=== PATIENT | female | born 1960 | race Caucasian/White ===

== ENCOUNTER → 2016-06-03 | Outpatient (CLI) | payer OTHER, MEDICAID ==
[~2016-06-03] MED LIST: /ESOM40CA OR; ALBU17IN INH; ARNU1INH INH; ASPI81TA83 OR; BUPIVACAINE HCL 0.25% 30 ML VIAL As Ordered ONE; CLAR10CA3 PO; CRES20TA OR; DOCU10CA PO; DOK100TA PO; GEMF600T PO; ISOVUE-M 300 61% 15ML VIAL (Q9967) As Ordered ONE; LIDOCAINE 1% SDV INJ 30 ML VIAL As Ordered ONE; LIPI80TA PO; LYRI150C OR; MECL-68 PO; PLAV75TA38 PO; PROT1TAB2 PO; RANI1TAB6 PO; SING10TA32 PO; TRIAMCINOLONE ACETONIDE SUSP 40 MG/ML VIAL (J3301) As Ordered ONE; VITA100037 PO; VITATAB73 PO; ZANA4CAP OR; diazePAM 5 MG TAB As Ordered ONE; metoprolol PO; oxyCODONE 5MG TAB As Ordered ONE
--- NOTE | 2016-06-03 10:33 | REP ---
Partial SI joint series: Four views. History: Right-sided SI joint block for pain. 14 seconds of fluoroscopy time is reported. Findings: A sequence of four fluoroscopically obtained intraprocedural spot radiographs of the right SI joint document various needle positions and contrast injections associated with SI joint injection procedure. Signed by Teddy Oglesby MD 06/03/2016 02:32 P
--- NOTE | 2016-06-05 00:27 | ECWPNPC ---
PATIENT NAME: CLARK HA : 1960 GENDER: FEMALE VISIT DATE: 06/03/2016 DISCHARGE DATE: 06/03/16 1038 VISIT LOCKED DATE TIME: PHYSICIAN: IRIS GALDAMEZ RESOURCE: IRIS GALDAMEZ REASON FOR APPOINTMENT 1. RIGHT SIJ HISTORY OF PRESENT ILLNESS HISTORY OF PRESENT ILLNESS: PAIN THE PATIENT DESCRIBES THE PAIN... FALL RISK SCREENING: SCREENING :NO FALLS IN THE PAST YEAR CURRENT MEDICATIONS TAKING VENTOLIN HFA 108 (90 BASE) MCG/ACT AEROSOL SOLUTION 2 PUFFS NEEDED INHALATION EVERY 4 HRS, NOTES: > 1 WEEK TAKING ARNUITY ELLIPTA 100 MCG/ACT AEROSOL POWDER BREATH ACTIVATED 1 PUFF INHALATION ONCE A DAY, NOTES: 06/02/16 0800 TAKING ASPIR-81 81 MG TABLET DELAYED RELEASE 1 TABLET ORALLY ONCE A DAY, NOTES: 06/02/16 08 TAKING ATORVASTATIN CALCIUM 80 MG TABLET 1 TABLET ORALLY ONCE A DAY, NOTES: 06/02/16 0800 TAKING PLAVIX 75 MG TABLET 1 TABLET ORALLY ONCE A DAY, NOTES: 05/27/16 0700 TAKING GEMFIBROZIL 600 MG TABLET 1 TABLET ORALLY TWICE A DAY, NOTES: 06/02/16 2100 TAKING LORATADINE 10 MG TABLET 1 TABLET ORALLY ONCE A DAY, NOTES: 06/02/16 0800 TAKING SINGULAIR 10 MG TABLET 1 TABLET IN THE EVENING ORALLY ONCE A DAY, NOTES: 06/02/16 0800 TAKING PROTONIX 40 MG TABLET DELAYED RELEASE 1 TABLET ORALLY BID, NOTES: 06/02/162099 TAKING RANITIDINE HCL 150 MG CAPSULE 1 CAPSULE ORALLY TWICE A DAY, NOTES: 06/02/162099 TAKING METOPROLOL TARTRATE 25 MG TABLET 1 TABLET ORALLY TWICE A DAY, NOTES: 06/02/16 2100 TAKING ONE DAILY FOR WOMEN TABLET ORALLY DAILY, NOTES: 06/02/16 1800 TAKING MELATONIN 5 MG TABLET 1 TABLET AT BEDTIME NEEDED WITH FOOD ORALLY ONCE A DAY, NOTES: 06/02/162099 NOT-TAKING MECLIZINE HCL 25 MG TABLET 1 TABLET NEEDED ORALLY TID PRN, NOTES: MONTHS AGO NOT-TAKING DOCUSATE SODIUM 100 MG CAPSULE 1 CAPSULE NEEDED ORALLY ONCE A DAY, NOTES: OVER 3 MONTHS AGO NOT-TAKING VALIUM 10 MG TABLET 1 TAB ORALLY 1 TAB 1HR PRE PROC. MDD1, NOTES: 10/25/15 AT 0830 NOT-TAKING VITAMIN D (CHOLECALCIFEROL) 1000 UNIT TABLET 1 TABLET ORALLY ONCE A DAY MEDICATION LIST REVIEWED AND RECONCILED WITH THE PATIENT PAST MEDICAL HISTORY HYPERTENSION ID 2012 WITH STENT PLACEMENT GERD ENVIRONMENTAL ALLERGIES ALLERGIES TAPE: SKIN IRRITATION: SIDE EFFECTS SOCIAL HISTORY GENERAL: TOBACCO USE ARE YOU A:NONSMOKER LEARNING BARRIERS / SPECIAL NEEDS ORIENTED TO PLAN OF CARE: PATIENT, PAIN MANAGEMENT PATIENT, ORIENTED TO PLAN OF CARE: PATIENT, PAIN MANAGEMENT PATIENT. NEW PATIENT PAIN DIARY TODAY'S VISITNOTES FROM 0-10, WHAT LEVEL IS YOUR PAIN TODAY?0 PAIN CLINIC PFS, CLERGY, PUBLIC HEALTH REFERRALS PFS REFERRAL NEEDED?NO CLERGY REFERRAL NEEDED?NO PUBLIC HEALTH REFERRAL NEEDED?NO WAS THE PROVIDER NOTIFIED OF ANY PERTINENT INFO?NO PFS REFERRAL NEEDED?NO CLERGY REFERRAL NEEDED?NO PUBLIC HEALTH REFERRAL NEEDED?NO WAS THE PROVIDER NOTIFIED OF ANY PERTINENT INFO?NO REVIEW OF SYSTEMS CONSTITUTIONAL: ANY CHANGE IN YOUR MEDICAL CONDITION? NO . CHILLS NO . FEVER NO . INFECTION: DO YOU HAVE NEW INFECTIONS? NO . DO YOU HAVE HISTORY OF MRSA? NO . MUSCULOSKELETAL: ANY NEW PATTERNS OF PAIN OR NUMBNESS? YES PT REPORTS NEW PAIN THAT GOES ACROSS SHOULDER BLADES, STARTING ABOUT A WEEK AGO. . GASTROENTEROLOGY: ANY NEW CHANGE IN BOWEL CONTROL? NO . GENITOURINARY: ANY NEW CHANGE IN BLADDER CONTROL? NO . IS THERE A CHANCE YOU COULD BE ? NO . HEMATOLOGY/LYMPH: DO YOU TAKE ANY BLOOD THINNERS? (FOR EXAMPLE- COUMADIN, PLAVIX, AGGRENOX, PLATEL, PRADAXA, OR XARELTO) NO . WHEN WAS YOUR LAST DOSE? DATE: TIME: . NEUROLOGY: HAVE YOU FALLEN IN THE PAST 6 MONTHS? YES PT REPORTS SHE SLIPPED AND FELL ON THE ICE A COUPLE OF WEEKS AGO. DENIES INJURY, NO ED VISIT. . ANY NEW EXTREMITY NUMBNESS OR WEAKNESS? NO . CARDIOLOGY: DO YOU HAVE A PACEMAKER OR DEFIBRILLATOR? NO . RESPIRATORY: HAVE YOU BEEN SICK IN THE PAST WEEK? NO . FEVER NO . FLU LIKE SYMPTOMS? NO . COUGH NO . INTEGUMENTARY: DO YOU HAVE ANY RASHES OR OPEN SORES? NO . ALLERGIC/IMMUNO: ARE YOU ALLERGIC TO SHELLFISH OR IV DYE? NO . ANY NEW ALLERGIES? NO . PSYCHIATRIC: DO YOU HAVE THOUGHTS OF HURTING YOURSELF OR SOMEONE ELSE? NO . ARE YOU ABUSED, NEGLECTED, OR IN AN UNSAFE ENVIRONMENT? NO . ENDOCRINOLOGY: ARE YOU DIABETIC? NO . OTHER: DO YOU NEED ANY PRESCRIPTIONS? NO . IF YES, PLEASE LIST: ____ . ANY NEW PROBLEMS WITH YOUR MEDICATIONS? NO . WHEN DID YOU LAST EAT? ____06/02/162399 . WHEN DID YOU LAST DRINK? ____06/02/162399 . WHAT DID YOU LAST DRINK? ____MILK . NAME OF PERSON DRIVING YOU HOME? ___CAB WITH FRIEND_ . DO YOU HAVE ANY OTHER QUESTIONS OR CONCERNS NO . REVIEWED BY: PROVIDER: . VITAL SIGNS WT 170 LBS, HT 5'3/4", BMI 32.38 INDEX, BP 141/61 MM HG, HR 72 /MIN, RR 16 /MIN, TEMP 96.7 F, OXYGEN SAT % 98, SAFE IN ENV? (Y/N) YES, NA INITIALS TL 0858, REVIEWED BY: ASSESSMENTS SACROILIITIS, NOT ELSEWHERE CLASSIFIED - M46.1 (PRIMARY) PROCEDURES PN SI PRE PROCEDURE DIAGNOSIS SACROILIITIS, SACROILIAC JOINT DYSFUNCTION POST PROCEDURE DIAGNOSIS SACROILIITIS, SACROILIAC JOINT DYSFUNCTION PROCEDURE ., RIGHT SACROILIAC JOINT BLOCK SURGEON DR. IRIS GALDAMEZ AOC DIRECTOR COMBAT OPERATIONS OFFICER NONE ANESTHESIA LOCAL PRE PROCEDURE NOTE PATIENT WITH HISTORY OF CHRONIC LOW BACK PAIN. I EVALUATED THE PATIENT AND REVIEWED THE CHART. I WENT OVER THE RISKS, ALTERNATIVES, AND BENEFITS ASSOCIATED WITH THIS PROCEDURE. THE PATIENT WOULD LIKE TO PROCEED AND GAVE CONSENT TO PERFORM THE PROCEDURE. THE PATIENT DENIES UNEXPLAINABLE WEIGHT LOSS, FEVER, CHILLS, OR NEW CHANGES IN URINARY OR BOWEL CONTROL DESCRIPTION OF PROCEDURE THE PATIENT WAS BROUGHT TO THE PROCEDURE ROOM AND PLACED IN THE PRONE POSITION. THE LUMBOSACRAL AREA WAS CLEANED WITH CHLORAPREP SOLUTION AND DRAPED ASEPTICALLY. THE PROCEDURE WAS DONE UNDER STERILE CONDITIONS. I CHECKED LATERALITY AND THE LEVEL WHERE THE PROCEDURE WAS GOING TO BE PERFORMED WITH THE PATIENT AND THE SUPPORTING STAFF AT THE MOMENT OF THE TIME OUT IN THE PROCEDURE ROOM. UNDER FLUOROSCOPIC GUIDANCE, TARGET POINT WAS SELECTED AT THE LOWER BORDER OF THE RIGHT SACROILIAC JOINT. TARGET POINT WAS SELECTED AFTER MEDIAL ROTATION AND TILT OF THE MAGNIFIER OF THE C-ARM. LIDOCAINE WAS USED TO NUMB THE SKIN AND SUBCUTANEOUS TISSUE BELOW IT. A SPINAL NEEDLE, 22-GAUGE, WAS ADVANCED UNDER FLUOROSCOPIC GUIDANCE AND FOLLOWING PATIENT FEEDBACK UNTIL THE TARGET AREA WAS TOUCHED. THE POSITION OF THE NEEDLE WAS VERIFIED WITH AP AND LATERAL VIEWS. AFTER PROPER POSITION OF THE NEEDLE WAS ACHIEVED, ISOVUE M DYE 30%, 0.25 ML, WAS INJECTED SHOWING SPREAD OF THE DYE. THEN, A SOLUTION OF 20 MG OF KENALOG WAS INJECTED IN RIGHT JOINT WITH 3 ML OF BUPIVACAINE 0.125%. THERE WAS NO EVIDENCE OF BLOOD, PARESTHESIA OR CEREBROSPINAL FLUID DURING THE PROCEDURE. THE PATIENT WAS SENT TO THE RECOVERY ROOM. THE PATIENT WAS MOVING THE EXTREMITIES AND DOING WELL. THERE WAS NO COMPLICATION DURING THE PROCEDURE. FLUOROSCOPY TIME WAS 14 SECONDS POST PROCEDURE NOTE THE PATIENT WILL BE SEEN IN A FOLLOW UP IN THE NEXT FEW WEEKS. INSTRUCTIONS WERE GIVEN, QUESTIONS WERE ANSWERED, AND THE PATIENT EXPRESSED UNDERSTANDING AND AGREED WITH THE PLAN. INSTRUCTIONS WERE GIVEN, QUESTIONS WERE ANSWERED, PATIENT REPORTS UNDERSTANDING AND AGREES WITH THE PLAN. I, REENA SAUNDERS, DOCUMENTED THE ABOVE INFORMATION ACTING A SCRIBE FOR DR. GALDAMEZ. I HAVE REVIEWED THE ABOVE DOCUMENT, WRITTEN BY REENA SAUNDERS SCRIBE AND I VERIFY THAT IT IS ACCURATE. [facility] FLUORO GUIDANCE (PAIN)[id number] PROCEDURE CODES 04179 INJECT SACROILIAC JOINT 6045F RADXPS IN END [id number] PXD FOLLOW UP 3 WEEKS ELECTRONICALLY SIGNED BY IRIS GALDAMEZ MD ON 06/04/2016 AT 08:11 PM EST DISCLAIMER : THIS IS A VISIT SUMMARY EXTRACTED FROM THE [employer] CHART. IT IS NOT A COPY OF THE [employer] PROGRESS NOTE. MTDD
== END ==
LOC: M PAIN 09:10
PROVIDERS: ATTEND Anesthesiology
DX: G89.29 Other chronic pain (principal); M46.1 Sacroiliitis, not elsewhere classified; M53.88 Other specified dorsopathies, sacral and sacrococcygeal region; I10 Essential (primary) hypertension; I25.2 Old myocardial infarction; K21.9 Gastro-esophageal reflux disease without esophagitis; J30.89 Other allergic rhinitis; L23.1 Allergic contact dermatitis due to adhesives; Z79.82 Long term (current) use of aspirin; Z79.899 Other long term (current) drug therapy
CPT/HCPCS: G0260; J3301; Q9967

== ENCOUNTER → 2016-06-19 | Outpatient (CLI) | payer OTHER, MEDICAID ==
[~2016-06-19] MED LIST changes: -BUPIVACAINE HCL 0.25% 30 ML VIAL As Ordered ONE; -ISOVUE-M 300 61% 15ML VIAL (Q9967) As Ordered ONE; -LIDOCAINE 1% SDV INJ 30 ML VIAL As Ordered ONE; -TRIAMCINOLONE ACETONIDE SUSP 40 MG/ML VIAL (J3301) As Ordered ONE; -diazePAM 5 MG TAB As Ordered ONE; -oxyCODONE 5MG TAB As Ordered ONE
--- NOTE | 2016-07-03 02:09 | ECWPNPC ---
PATIENT NAME: CLARK HA : 1960 GENDER: FEMALE VISIT DATE: 06/19/2016 DISCHARGE DATE: 06/19/16 1539 VISIT LOCKED DATE TIME: PHYSICIAN: CRYSTAL POWELL RESOURCE: CRYSTAL POWELL REASON FOR APPOINTMENT 1. POST SIJ HISTORY OF PRESENT ILLNESS HISTORY OF PRESENT ILLNESS: PAIN THE PATIENT DESCRIBES THE PAIN... FALL RISK SCREENING: SCREENING :NO FALLS IN THE PAST YEAR GENERAL: HERE FOR POST PROC. F/U.HAD RSIJ ON 06-03-16.REPORTS NO IMPROVEMENT IN PAIN.TODAY IS CRYING IN PAIN .REPORTING REOCCURENCE OF MID THORACIC PAIN .NOW PAIN IS LOCATED IN BOTH LEGS.DESCRIBES PAIN IS SHARP AND BURNING.RATING PAIN VAS 9/10. CURRENT MEDICATIONS TAKING VENTOLIN HFA 108 (90 BASE) MCG/ACT AEROSOL SOLUTION 2 PUFFS NEEDED INHALATION EVERY 4 HRS, NOTES: > 1 WEEK TAKING ARNUITY ELLIPTA 100 MCG/ACT AEROSOL POWDER BREATH ACTIVATED 1 PUFF INHALATION ONCE A DAY, NOTES: 06/02/16 0800 TAKING ASPIR-81 81 MG TABLET DELAYED RELEASE 1 TABLET ORALLY ONCE A DAY, NOTES: 06/02/16 0800 TAKING ATORVASTATIN CALCIUM 80 MG TABLET 1 TABLET ORALLY ONCE A DAY, NOTES: 06/02/16 0800 TAKING PLAVIX 75 MG TABLET 1 TABLET ORALLY ONCE A DAY, NOTES: 05/27/16 0700 TAKING GEMFIBROZIL 600 MG TABLET 1 TABLET ORALLY TWICE A DAY, NOTES: 06/02/16 2100 TAKING LORATADINE 10 MG TABLET 1 TABLET ORALLY ONCE A DAY, NOTES: 06/02/16 0800 TAKING SINGULAIR 10 MG TABLET 1 TABLET IN THE EVENING ORALLY ONCE A DAY, NOTES: 06/02/16 0800 TAKING PROTONIX 40 MG TABLET DELAYED RELEASE 1 TABLET ORALLY BID, NOTES: 06/02/16 2100 TAKING RANITIDINE HCL 150 MG CAPSULE 1 CAPSULE ORALLY TWICE A DAY, NOTES: 06/02/16 2100 TAKING METOPROLOL TARTRATE 25 MG TABLET 1 TABLET ORALLY TWICE A DAY, NOTES: 06/02/16 2100 TAKING ONE DAILY FOR WOMEN TABLET ORALLY DAILY, NOTES: 06/02/16 1800 TAKING MELATONIN 5 MG TABLET 1 TABLET AT BEDTIME NEEDED WITH FOOD ORALLY ONCE A DAY, NOTES: 06/02/162099 NOT-TAKING MECLIZINE HCL 25 MG TABLET 1 TABLET NEEDED ORALLY TID PRN, NOTES: MONTHS AGO NOT-TAKING DOCUSATE SODIUM 100 MG CAPSULE 1 CAPSULE NEEDED ORALLY ONCE A DAY, NOTES: OVER 3 MONTHS AGO NOT-TAKING VALIUM 10 MG TABLET 1 TAB ORALLY 1 TAB 1HR PRE PROC. MDD1, NOTES: 10/25/15 AT 0830 NOT-TAKING VITAMIN D (CHOLECALCIFEROL) 1000 UNIT TABLET 1 TABLET ORALLY ONCE A DAY MEDICATION LIST REVIEWED AND RECONCILED WITH THE PATIENT PAST MEDICAL HISTORY HYPERTENSION MD 2011 WITH STENT PLACEMENT GERD ENVIRONMENTAL ALLERGIES ALLERGIES TAPE: SKIN IRRITATION: SIDE EFFECTS SOCIAL HISTORY GENERAL: TOBACCO USE ARE YOU A:NONSMOKER LEARNING BARRIERS / SPECIAL NEEDS ORIENTED TO PLAN OF CARE: PATIENT, PAIN MANAGEMENT PATIENT, ORIENTED TO PLAN OF CARE: PATIENT, PAIN MANAGEMENT PATIENT. NEW PATIENT PAIN DIARY TODAY'S VISITNOTES FROM 0-10, WHAT LEVEL IS YOUR PAIN TODAY?0 PAIN CLINIC PFS, CLERGY, PUBLIC HEALTH REFERRALS PFS REFERRAL NEEDED?NO CLERGY REFERRAL NEEDED?NO PUBLIC HEALTH REFERRAL NEEDED?NO WAS THE PROVIDER NOTIFIED OF ANY PERTINENT INFO?NO PFS REFERRAL NEEDED?NO CLERGY REFERRAL NEEDED?NO PUBLIC HEALTH REFERRAL NEEDED?NO WAS THE PROVIDER NOTIFIED OF ANY PERTINENT INFO?NO REVIEW OF SYSTEMS CONSTITUTIONAL: ANY CHANGE IN YOUR MEDICAL CONDITION? NO . CHILLS NO . FEVER NO . INFECTION: DO YOU HAVE NEW INFECTIONS? NO . DO YOU HAVE HISTORY OF MRSA? NO . MUSCULOSKELETAL: ANY NEW PATTERNS OF PAIN OR NUMBNESS? YES, BOTH SIDES BELOW SHOULDERS. PAIN ACROSS WHOLE LOWER BACK, INTO HIPS, AROUND DOWN FRONT OF LEGS , LEFT LEG IS WORSE. DOWN TO FOOT AND HEEL ON LEFT FOOT. . GASTROENTEROLOGY: ANY NEW CHANGE IN BOWEL CONTROL? NO . GENITOURINARY: ANY NEW CHANGE IN BLADDER CONTROL? NO . IS THERE A CHANCE YOU COULD BE ? NO . HEMATOLOGY/LYMPH: DO YOU TAKE ANY BLOOD THINNERS? (FOR EXAMPLE- COUMADIN, PLAVIX, AGGRENOX, PLATEL, PRADAXA, OR XARELTO) YES, PLAVIX . WHEN WAS YOUR LAST DOSE? DATE: TIME: . NEUROLOGY: HAVE YOU FALLEN IN THE PAST 6 MONTHS? YES . ANY NEW EXTREMITY NUMBNESS OR WEAKNESS? NO . CARDIOLOGY: DO YOU HAVE A PACEMAKER OR DEFIBRILLATOR? NO . RESPIRATORY: HAVE YOU BEEN SICK IN THE PAST WEEK? NO . FEVER NO . FLU LIKE SYMPTOMS? NO . COUGH NO . INTEGUMENTARY: DO YOU HAVE ANY RASHES OR OPEN SORES? NO . ALLERGIC/IMMUNO: ARE YOU ALLERGIC TO SHELLFISH OR IV DYE? NO . ANY NEW ALLERGIES? NO . PSYCHIATRIC: DO YOU HAVE THOUGHTS OF HURTING YOURSELF OR SOMEONE ELSE? NO . ARE YOU ABUSED, NEGLECTED, OR IN AN UNSAFE ENVIRONMENT? NO . ENDOCRINOLOGY: ARE YOU DIABETIC? NO . OTHER: DO YOU NEED ANY PRESCRIPTIONS? NO . IF YES, PLEASE LIST: ____ . ANY NEW PROBLEMS WITH YOUR MEDICATIONS? NO . WHEN DID YOU LAST EAT? ____ . WHEN DID YOU LAST DRINK? ____ . WHAT DID YOU LAST DRINK? ____ . NAME OF PERSON DRIVING YOU HOME? ____ . DO YOU HAVE ANY OTHER QUESTIONS OR CONCERNS YES, UPSET AND GETTING DEPRESSED BECAUSE THIS INJECTION HAS NOT HELPED THE PAIN AT ALL THIS TIME. . REVIEWED BY: PROVIDER: CRYSTAL JOINER . VITAL SIGNS WT 170 LBS, HT 5'3/4", BMI 32.38 INDEX, BP 148/73 MM HG, HR 76 /MIN, RR 16 /MIN, TEMP 98.8 F, OXYGEN SAT % 99, NA INITIALS MP, REVIEWED BY: CM. EXAMINATION GENERAL EXAMINATION: LUNGS:LUNG SOUNDS ARE CLEAR. HEART:HEART RATE REGULAR. MUSCULOSKELETAL:*, MUSCLE STRENGTH TESTING 5/5 BILATERAL, PALPATION: TENDER OVER RIGHT SIJ AND PIRIFORMIS, PALPATION: POSITIVE FOR PAIN OVER L/S SPINE. POSITIVE FOR PAIN OVER L/S PARASPINALS. ASSESSMENTS PAIN IN THORACIC SPINE - M54.6 (PRIMARY) MYALGIA - M79.1 TREATMENT PAIN IN THORACIC SPINE START TRAMADOL HCL TABLET, 50 MG, 1 TABLET NEEDED, ORALLY, BID, 30 DAY(S), 60 TABLET, REFILLS 1 START GABAPENTIN CAPSULE, 100 MG, DIRECTED, ORALLY, BID, 30 DAY(S), 60, REFILLS 1 [facility] MRI SPINE,THORACIC WITHOUT [id number] NOTES: LAB WORK-ISRAEL,RHEUMATOID FACTOR,ESR,LUPUS ANTICOAGULANT,TSH. PREVENTIVE MEDICINE PAIN CLINIC TEACHING: MEDICATIONS PRINTED HANDOUTS FOR TRAMADOL AND GABAPENTIN GIVEN/REVIEWED WITH PT.. PROCEDURE CODES FA211 ESTABILISHED PATIENT [facility] CHARGE FOLLOW UP 4 WEEKS ELECTRONICALLY SIGNED BY MARISEL GROSS ON 06/30/2016 AT 07:37 PM EST DISCLAIMER : THIS IS A VISIT SUMMARY EXTRACTED FROM THE [employer] CHART. IT IS NOT A COPY OF THE [employer] PROGRESS NOTE. MTDD
== END ==
LOC: M PAIN 15:00
PROVIDERS: ATTEND Nurse Practitioner Family
DX: M54.6 Pain in thoracic spine (principal); M79.1 Myalgia; I25.2 Old myocardial infarction; Z95.5 Presence of coronary angioplasty implant and graft; Z79.82 Long term (current) use of aspirin; Z79.899 Other long term (current) drug therapy; Z91.09 Other allergy status, other than to drugs and biological substances

== ENCOUNTER → 2016-06-30 | Outpatient (CLI) | payer OTHER ==
[2016-07-02 00:14] LABS: Lyme Disease IgG/IgM Antibodie <0.91 ISR (0.00-0.90); Lyme Disease IgM Ab Quantitati <0.80 index (0.00-0.79)
== END ==
LOC: M LAB 07:54
PROVIDERS: ATTEND Nurse Practitioner Family
DX: M05.9 Rheumatoid arthritis with rheumatoid factor, unspecified (principal); N80.6 Endometriosis in cutaneous scar; N18.6 End stage renal disease; M32.9 Systemic lupus erythematosus, unspecified; Z79.01 Long term (current) use of anticoagulants; Z13.29 Encounter for screening for other suspected endocrine disorder

== ENCOUNTER → 2016-07-17 | Outpatient (CLI) | payer OTHER, MEDICAID ==
--- NOTE | 2016-07-19 00:45 | ECWPNPC ---
PATIENT NAME: CLARK HA : 1960 GENDER: FEMALE VISIT DATE: 07/17/2016 DISCHARGE DATE: 07/17/16 1544 VISIT LOCKED DATE TIME: PHYSICIAN: CRYSTAL POWELL RESOURCE: CRYSTAL POWELL REASON FOR APPOINTMENT 1. FOLLOWUP-LOW BACK HISTORY OF PRESENT ILLNESS HISTORY OF PRESENT ILLNESS: HERE FOR F/U AND MANAGEMENT OF CHRONIC GENERALIZED BODY PAIN.WORSE AREA OF PAIN IS LOW BACK.PAIN IS AGGREVATED BY GOING UP STAIRS.RELIEVED SOMEWHAT BY TRAMADOL 50MG.TAKING GABAPENTIN 100MG BID STARTED AT LAST VISIT WHICH IS HELPING A LITTLE.RATING PAIN VAS 6/10.INFLAMMATORY BLOODWORK ORDERED AT LAST VISIT REVIEWED AND WNL. PAIN THE PATIENT DESCRIBES THE PAIN... FALL RISK SCREENING: SCREENING :NO FALLS IN THE PAST YEAR CURRENT MEDICATIONS TAKING VENTOLIN HFA 108 (90 BASE) MCG/ACT AEROSOL SOLUTION 2 PUFFS NEEDED INHALATION EVERY 4 HRS, NOTES: > 1 WEEK TAKING ARNUITY ELLIPTA 100 MCG/ACT AEROSOL POWDER BREATH ACTIVATED 1 PUFF INHALATION ONCE A DAY, NOTES: 06/02/16 0800 TAKING ASPIR-81 81 MG TABLET DELAYED RELEASE 1 TABLET ORALLY ONCE A DAY, NOTES: 06/02/16 0800 TAKING ATORVASTATIN CALCIUM 80 MG TABLET 1 TABLET ORALLY ONCE A DAY, NOTES: 06/02/16 0800 TAKING PLAVIX 75 MG TABLET 1 TABLET ORALLY ONCE A DAY, NOTES: 05/27/16 0700 TAKING GEMFIBROZIL 600 MG TABLET 1 TABLET ORALLY TWICE A DAY, NOTES: 06/02/16 2100 TAKING LORATADINE 10 MG TABLET 1 TABLET ORALLY ONCE A DAY, NOTES: 06/02/16 0800 TAKING SINGULAIR 10 MG TABLET 1 TABLET IN THE EVENING ORALLY ONCE A DAY, NOTES: 06/02/16 0800 TAKING PROTONIX 40 MG TABLET DELAYED RELEASE 1 TABLET ORALLY BID, NOTES: 06/02/16 2100 TAKING RANITIDINE HCL 150 MG CAPSULE 1 CAPSULE ORALLY TWICE A DAY, NOTES: 06/02/16 2100 TAKING METOPROLOL TARTRATE 25 MG TABLET 1 TABLET ORALLY TWICE A DAY, NOTES: 06/02/16 2100 TAKING ONE DAILY FOR WOMEN TABLET ORALLY DAILY, NOTES: 06/02/16 1800 TAKING MELATONIN 5 MG TABLET 1 TABLET AT BEDTIME NEEDED WITH FOOD ORALLY ONCE A DAY, NOTES: 06/02/16 2100 TAKING TRAMADOL HCL 50 MG TABLET 1 TABLET NEEDED ORALLY BID TAKING GABAPENTIN 100 MG CAPSULE DIRECTED ORALLY BID TAKING ANORO ELLIPTA UMECLIDINIUM 62.5 MCG AND VILANTEROL 25 MCG INHALATION POWDER 1 INHALATION ORAL ONCE DAILY NOT-TAKING MECLIZINE HCL 25 MG TABLET 1 TABLET NEEDED ORALLY TID PRN, NOTES: MONTHS AGO NOT-TAKING DOCUSATE SODIUM 100 MG CAPSULE 1 CAPSULE NEEDED ORALLY ONCE A DAY, NOTES: OVER 3 MONTHS AGO NOT-TAKING VALIUM 10 MG TABLET 1 TAB ORALLY 1 TAB 1HR PRE PROC. MDD1, NOTES: 10/25/15 AT 0830 NOT-TAKING VITAMIN D (CHOLECALCIFEROL) 1000 UNIT TABLET 1 TABLET ORALLY ONCE A DAY MEDICATION LIST REVIEWED AND RECONCILED WITH THE PATIENT PAST MEDICAL HISTORY HYPERTENSION MO 2011 WITH STENT PLACEMENT GERD ENVIRONMENTAL ALLERGIES ALLERGIES TAPE: SKIN IRRITATION: SIDE EFFECTS SOCIAL HISTORY GENERAL: TOBACCO USE ARE YOU A:NONSMOKER LEARNING BARRIERS / SPECIAL NEEDS ORIENTED TO PLAN OF CARE: PATIENT, PAIN MANAGEMENT PATIENT, ORIENTED TO PLAN OF CARE: PATIENT, PAIN MANAGEMENT PATIENT. NEW PATIENT PAIN DIARY TODAY'S VISITNOTES FROM 0-10, WHAT LEVEL IS YOUR PAIN TODAY?0 PAIN CLINIC PFS, CLERGY, PUBLIC HEALTH REFERRALS PFS REFERRAL NEEDED?NO CLERGY REFERRAL NEEDED?NO PUBLIC HEALTH REFERRAL NEEDED?NO WAS THE PROVIDER NOTIFIED OF ANY PERTINENT INFO?NO PFS REFERRAL NEEDED?NO CLERGY REFERRAL NEEDED?NO PUBLIC HEALTH REFERRAL NEEDED?NO WAS THE PROVIDER NOTIFIED OF ANY PERTINENT INFO?NO REVIEW OF SYSTEMS CONSTITUTIONAL: ANY CHANGE IN YOUR MEDICAL CONDITION? NO . CHILLS NO . FEVER NO . INFECTION: DO YOU HAVE NEW INFECTIONS? NO . DO YOU HAVE HISTORY OF MRSA? NO . MUSCULOSKELETAL: ANY NEW PATTERNS OF PAIN OR NUMBNESS? NO . GASTROENTEROLOGY: ANY NEW CHANGE IN BOWEL CONTROL? NO . GENITOURINARY: ANY NEW CHANGE IN BLADDER CONTROL? NO . IS THERE A CHANCE YOU COULD BE ? NO . HEMATOLOGY/LYMPH: DO YOU TAKE ANY BLOOD THINNERS? (FOR EXAMPLE- COUMADIN, PLAVIX, AGGRENOX, PLATEL, PRADAXA, OR XARELTO) YES PLAVIX . WHEN WAS YOUR LAST DOSE? DATE: TIME: . NEUROLOGY: HAVE YOU FALLEN IN THE PAST 6 MONTHS? NO . ANY NEW EXTREMITY NUMBNESS OR WEAKNESS? NO . CARDIOLOGY: DO YOU HAVE A PACEMAKER OR DEFIBRILLATOR? NO . RESPIRATORY: HAVE YOU BEEN SICK IN THE PAST WEEK? NO . FEVER NO . FLU LIKE SYMPTOMS? NO . COUGH NO . INTEGUMENTARY: DO YOU HAVE ANY RASHES OR OPEN SORES? NO . ALLERGIC/IMMUNO: ARE YOU ALLERGIC TO SHELLFISH OR IV DYE? NO . ANY NEW ALLERGIES? NO . PSYCHIATRIC: DO YOU HAVE THOUGHTS OF HURTING YOURSELF OR SOMEONE ELSE? NO . ARE YOU ABUSED, NEGLECTED, OR IN AN UNSAFE ENVIRONMENT? NO . ENDOCRINOLOGY: ARE YOU DIABETIC? NO . OTHER: DO YOU NEED ANY PRESCRIPTIONS? NO . IF YES, PLEASE LIST: ____ . ANY NEW PROBLEMS WITH YOUR MEDICATIONS? NO . WHEN DID YOU LAST EAT? ____ . WHEN DID YOU LAST DRINK? ____ . WHAT DID YOU LAST DRINK? ____ . NAME OF PERSON DRIVING YOU HOME? ____ . DO YOU HAVE ANY OTHER QUESTIONS OR CONCERNS NO . REVIEWED BY: PROVIDER: CRYSTAL JOINER . VITAL SIGNS WT 177 LBS, HT 5'3/4", BMI 33.72 INDEX, BP 126/67 MM HG, HR 57 /MIN, RR 16 /MIN, TEMP 98.7 F, OXYGEN SAT % 98, NA INITIALS TL 1426, REVIEWED BY: MLF. EXAMINATION GENERAL EXAMINATION: LUNGS:LUNG SOUNDS ARE CLEAR. HEART:HEART RATE REGULAR. MUSCULOSKELETAL:*, MUSCLE STRENGTH TESTING 5/5 BILATERAL, PALPATION: TENDER OVER RIGHT SIJ AND PIRIFORMIS, PALPATION: POSITIVE FOR PAIN OVER L/S SPINE. POSITIVE FOR PAIN OVER L/S PARASPINALS. MULTIPLE AREAS OF TENDER SPOTS UPPER AND LOWER TORSO INDICATIVE OF FIBROMYALGIA. ASSESSMENTS PAIN IN THORACIC SPINE - M54.6 (PRIMARY) MYALGIA - M79.1 TREATMENT PAIN IN THORACIC SPINE CONTINUE TRAMADOL HCL TABLET, 50 MG, 1 TABLET NEEDED, ORALLY, BID INCREASE GABAPENTIN CAPSULE, 100 MG, 2, ORALLY, BID, 30 DAY(S), 120, REFILLS 2 JOHNSON SPINE THORACOLUMBAR 2 [id number] NOTES: PATIENT WAS ADVISED TO START A WALKING PROGRAM TO STRENGTHEN LUMBAR PARASPINAL MUSCLES AND IMPROVE MOBILITY. THEY WERE ADVISED THAT THIS WILL IMPROVE WEIGHT LOSS AND ALSO DEPRESSION/FIBROMYALGIA SYMPTOMS. ADVISED TO WALK 10 MINUTES EVERY OTHER DAY ON A FLAT SURFACE. EMPHASIZED THE IMPORTANCE OF DOING THIS CONSISTANTLY AND NOT SPORATICALLY TO AVOID INJURY. STRONG ADVISED NOT TO DO MORE THAN 10 MINUTES EVERY OTHER DSY FOR THE FIRST 4 WEEKS. PROCEDURE CODES FA211 ESTABILISHED PATIENT [facility] CHARGE DISPOSITION & COMMUNICATION FOLLOW UP 2 MONTHS ELECTRONICALLY SIGNED BY MARISEL GROSS ON 07/18/2016 AT 04:08 PM EST DISCLAIMER : THIS IS A VISIT SUMMARY EXTRACTED FROM THE [employer] CHART. IT IS NOT A COPY OF THE [employer] PROGRESS NOTE. DARREL
== END ==
LOC: M PAIN 14:00
PROVIDERS: ATTEND Nurse Practitioner Family
DX: Z09 Encounter for follow-up examination after completed treatment for conditions other than malignant neoplasm (principal); G89.29 Other chronic pain; M54.6 Pain in thoracic spine; M79.1 Myalgia; I10 Essential (primary) hypertension; I25.2 Old myocardial infarction; K21.9 Gastro-esophageal reflux disease without esophagitis; J30.2 Other seasonal allergic rhinitis; L23.1 Allergic contact dermatitis due to adhesives; Z79.01 Long term (current) use of anticoagulants; Z79.82 Long term (current) use of aspirin; Z79.891 Long term (current) use of opiate analgesic; Z79.51 Long term (current) use of inhaled steroids; Z79.899 Other long term (current) drug therapy

== ENCOUNTER → 2016-08-08 | Outpatient (CLI) | payer OTHER ==
--- NOTE | 2016-08-08 15:23 | REP ---
THORACOLUMBAR SPINE, TWO VIEWS: HISTORY: Back pain. COMPARISON: 07/25/2011 and 07/19/2015. There is no acute fracture. The L2-3 through L5-S1 intervertebral discs are decreased in height consistent with disc degeneration. Osteophytes are present on L2-5. There are 4 mm of grade 1 spondylolisthesis of L4 on 5. IMPRESSION: Degenerative change as described above. Signed by Marcel Prieto MD 08/08/2016 03:28 P
== END ==
LOC: M RAD 14:13
PROVIDERS: ATTEND Nurse Practitioner Family
DX: M51.34 Other intervertebral disc degeneration, thoracic region (principal)

== ENCOUNTER → 2016-09-16 | Outpatient (CLI) | payer OTHER, MEDICAID ==
--- NOTE | 2016-10-01 01:35 | ECWPNPC ---
PATIENT NAME: CLARK HA : 1960 GENDER: FEMALE VISIT DATE: 09/16/2016 DISCHARGE DATE: 09/16/16 1608 VISIT LOCKED DATE TIME: PHYSICIAN: CRYSTAL POWELL RESOURCE: CRYSTAL POWELL REASON FOR APPOINTMENT 1. LOW BACK HISTORY OF PRESENT ILLNESS HISTORY OF PRESENT ILLNESS: HERE FOR F/U AND MANAGEMENT OF CHRONIC GENERALIZED BODY PAIN.WORSE AREA OF PAIN IS LOW BACK.PAIN IS AGGREVATED BY GOING UP STAIRS.TAKING GABAPENTIN 100MG TWO TAB BID RATING PAIN VAS 5/10.INFLAMMATORY BLOODWORK WAS REVIEWED AT LAST VISIT AND WAS WNL. STARTED ON CYMBALTA 30MG DAILY BY PRIMARY CARE A FEW WEEKS AGO.DISCUSSED MEDICATION AND TREATMENT OPTIONS. PAIN THE PATIENT DESCRIBES THE PAIN... THE PATIENT DESCRIBES THE PAIN... FALL RISK SCREENING: SCREENING :NO FALLS IN THE PAST YEAR CURRENT MEDICATIONS TAKING VENTOLIN HFA 108 (90 BASE) MCG/ACT AEROSOL SOLUTION 2 PUFFS NEEDED INHALATION EVERY 4 HRS TAKING ARNUITY ELLIPTA 100 MCG/ACT AEROSOL POWDER BREATH ACTIVATED 1 PUFF INHALATION ONCE A DAY TAKING ASPIR-81 81 MG TABLET DELAYED RELEASE 1 TABLET ORALLY ONCE A DAY TAKING ATORVASTATIN CALCIUM 80 MG TABLET 1 TABLET ORALLY ONCE A DAY TAKING PLAVIX 75 MG TABLET 1 TABLET ORALLY ONCE A DAY TAKING GEMFIBROZIL 600 MG TABLET 1 TABLET ORALLY TWICE A DAY TAKING LORATADINE 10 MG TABLET 1 TABLET ORALLY ONCE A DAY TAKING SINGULAIR 10 MG TABLET 1 TABLET IN THE EVENING ORALLY ONCE A DAY TAKING PROTONIX 40 MG TABLET DELAYED RELEASE 1 TABLET ORALLY BID TAKING RANITIDINE HCL 150 MG CAPSULE 1 CAPSULE ORALLY TWICE A DAY TAKING METOPROLOL TARTRATE 25 MG TABLET 1 TABLET ORALLY TWICE A DAY TAKING ONE DAILY FOR WOMEN TABLET ORALLY DAILY TAKING MELATONIN 5 MG TABLET 1 TABLET AT BEDTIME NEEDED WITH FOOD ORALLY ONCE A DAY TAKING ANORO ELLIPTA UMECLIDINIUM 62.5 MCG AND VILANTEROL 25 MCG INHALATION POWDER 1 INHALATION ORAL ONCE DAILY TAKING TRAMADOL HCL 50 MG TABLET 1 TABLET NEEDED ORALLY BID TAKING GABAPENTIN 100 MG CAPSULE 2 TABLETS ORALLY ONCE DAILY TAKING CYMBALTA 30 MG CAPSULE DELAYED RELEASE PARTICLES 1 CAPSULE ORALLY DAILY NOT-TAKING MECLIZINE HCL 25 MG TABLET 1 TABLET NEEDED ORALLY TID PRN, NOTES: MONTHS AGO NOT-TAKING DOCUSATE SODIUM 100 MG CAPSULE 1 CAPSULE NEEDED ORALLY ONCE A DAY, NOTES: OVER 3 MONTHS AGO NOT-TAKING VALIUM 10 MG TABLET 1 TAB ORALLY 1 TAB 1HR PRE PROC. MDD1, NOTES: 10/25/15 AT 0830 NOT-TAKING VITAMIN D (CHOLECALCIFEROL) 1000 UNIT TABLET 1 TABLET ORALLY ONCE A DAY MEDICATION LIST REVIEWED AND RECONCILED WITH THE PATIENT PAST MEDICAL HISTORY HYPERTENSION [place] 2011 WITH STENT PLACEMENT GERD ENVIRONMENTAL ALLERGIES ALLERGIES TAPE: SKIN IRRITATION: SIDE EFFECTS REVIEW OF SYSTEMS CONSTITUTIONAL: ANY CHANGE IN YOUR MEDICAL CONDITION? NO . CHILLS NO . FEVER NO . INFECTION: DO YOU HAVE NEW INFECTIONS? NO . DO YOU HAVE HISTORY OF MRSA? NO . MUSCULOSKELETAL: ANY NEW PATTERNS OF PAIN OR NUMBNESS? NO . GASTROENTEROLOGY: ANY NEW CHANGE IN BOWEL CONTROL? NO . GENITOURINARY: ANY NEW CHANGE IN BLADDER CONTROL? NO . IS THERE A CHANCE YOU COULD BE ? NO . HEMATOLOGY/LYMPH: DO YOU TAKE ANY BLOOD THINNERS? (FOR EXAMPLE- COUMADIN, PLAVIX, AGGRENOX, PLATEL, PRADAXA, OR XARELTO) YES, PLAVIX . WHEN WAS YOUR LAST DOSE? DATE: 09/16/16 TIME: 0700 . NEUROLOGY: HAVE YOU FALLEN IN THE PAST 6 MONTHS? NO . ANY NEW EXTREMITY NUMBNESS OR WEAKNESS? NO . CARDIOLOGY: DO YOU HAVE A PACEMAKER OR DEFIBRILLATOR? NO . RESPIRATORY: HAVE YOU BEEN SICK IN THE PAST WEEK? NO . FEVER NO . FLU LIKE SYMPTOMS? NO . COUGH NO . INTEGUMENTARY: DO YOU HAVE ANY RASHES OR OPEN SORES? NO . ALLERGIC/IMMUNO: ARE YOU ALLERGIC TO SHELLFISH OR IV DYE? NO . ANY NEW ALLERGIES? NO . PSYCHIATRIC: DO YOU HAVE THOUGHTS OF HURTING YOURSELF OR SOMEONE ELSE? NO . ARE YOU ABUSED, NEGLECTED, OR IN AN UNSAFE ENVIRONMENT? NO . ENDOCRINOLOGY: ARE YOU DIABETIC? NO . OTHER: DO YOU NEED ANY PRESCRIPTIONS? NO . IF YES, PLEASE LIST: ____ . ANY NEW PROBLEMS WITH YOUR MEDICATIONS? NO . WHEN DID YOU LAST EAT? ____ . WHEN DID YOU LAST DRINK? ____ . WHAT DID YOU LAST DRINK? ____ . NAME OF PERSON DRIVING YOU HOME? ____ . DO YOU HAVE ANY OTHER QUESTIONS OR CONCERNS NO . REVIEWED BY: PROVIDER: CRYSTAL JOINER . VITAL SIGNS WT 177 LBS, HT 5'3/4", BMI 33.72 INDEX, BP 129/63 MM HG, HR 66 /MIN, RR 16 /MIN, TEMP 97.3 F, OXYGEN SAT % 98%, NA INITIALS AW 1512, REVIEWED BY: FRANCIA. EXAMINATION GENERAL EXAMINATION: LUNGS:LUNG SOUNDS ARE CLEAR. HEART:HEART RATE REGULAR. MUSCULOSKELETAL:*, MUSCLE STRENGTH TESTING 5/5 BILATERAL, PALPATION: TENDER OVER RIGHT SIJ AND PIRIFORMIS, PALPATION: POSITIVE FOR PAIN OVER L/S SPINE. POSITIVE FOR PAIN OVER L/S PARASPINALS. MULTIPLE AREAS OF TENDER SPOTS UPPER AND LOWER TORSO INDICATIVE OF FIBROMYALGIA. ASSESSMENTS PAIN IN THORACIC SPINE - M54.6 (PRIMARY) MYALGIA - M79.1 TREATMENT PAIN IN THORACIC SPINE REFILL TRAMADOL HCL TABLET, 50 MG, 1 TABLET NEEDED, ORALLY, DAILY PRN PAIN MDD1, 30 DAY(S), 30, REFILLS 1 STOP GABAPENTIN CAPSULE, 100 MG, 2 TABLETS, ORALLY, ONCE DAILY REFERRAL TO:PHYSICAL THERAPIST REASON:CHRONIC LOW BACK PAIN-2X WK X 6 WK PROCEDURE CODES FA211 ESTABILISHED PATIENT [facility] CHARGE DISPOSITION & COMMUNICATION FOLLOW UP 2 MONTHS ELECTRONICALLY SIGNED BY MARISEL GROSS ON 09/30/2016 AT 12:59 PM EDT DISCLAIMER : THIS IS A VISIT SUMMARY EXTRACTED FROM THE [facility] CHART. IT IS NOT A COPY OF THE [facility] PROGRESS NOTE. DARREL
== END ==
LOC: M PAIN 15:00
PROVIDERS: ATTEND Nurse Practitioner Family
DX: G89.29 Other chronic pain (principal); M54.6 Pain in thoracic spine; M79.1 Myalgia; I10 Essential (primary) hypertension; K21.9 Gastro-esophageal reflux disease without esophagitis; J30.9 Allergic rhinitis, unspecified; I25.2 Old myocardial infarction; Z79.899 Other long term (current) drug therapy; Z79.82 Long term (current) use of aspirin; Z79.51 Long term (current) use of inhaled steroids; Z79.01 Long term (current) use of anticoagulants; L23.1 Allergic contact dermatitis due to adhesives

== ENCOUNTER 2016-10-12 10:34 | Observation (INO) | payer OTHER, MEDICAID ==
[~2016-10-12] VITALS: Ht 154.9 cm; Wt 81.0 kg
[2016-10-12] MEDS ORDERED: METO25TAB PO (10:49)
[2016-10-12] MEDS ORDERED: CYMB1CAP4 PO (10:49)
[2016-10-12 11:07] LABS: BASO % 0.3 % (0.0-1.0); EOS # 0.3 K/mm3 (0.0-0.50); EOS % 3.8 % (0.0-3.0); LARGE UNSTAINED CELL # 0.2 K/mm3 (0.0-0.4); LARGE UNSTAINED CELL % 2.6 % (0.0-4.0); LYMPH # 2.5 K/mm3 (1.5-4.5); LYMPH % 30.6 % (24.0-44.0); MEAN CORPUSCULAR HGB CONC 33.8 g/dl (32.0-36.5); MEAN CORPUSCULAR VOLUME 91.8 fl (80.0-96.0); MONO # 0.4 K/mm3 (0.0-0.8); MONO % 5.4 % (0.0-5.0); NEUTROPHILS # 4.2 K/mm3 (1.8-7.7); NEUTROPHILS % 57.3 % (36.0-66.0); PLATELET COUNT, AUTOMATED 301 k/mm3 (150-450); RED CELL DISTRIBUTION WIDTH 13.8 % (11.5-14.5); WHITE BLOOD COUNT 7.4 K/mm3 (4.0-10.0)
[2016-10-12 11:23] LABS: ANION GAP 5 MEQ/L (8-16); BLOOD UREA NITROGEN 14 MG/DL (7-18); CALCIUM LEVEL 8.8 MG/DL (8.5-10.1); CARBON DIOXIDE LEVEL 28 MEQ/L (21-32); CHLORIDE LEVEL 110 MEQ/L (98-107); CREATININE FOR GFR 0.96 MG/DL (0.55-1.02); GLOMERULAR FILTRATION RATE > 60.0 (>51); GLUCOSE, FASTING 103 MG/DL (70-105); POTASSIUM SERUM 4.2 MEQ/L (3.5-5.1); SODIUM LEVEL 143 MEQ/L (136-145)
--- NOTE | 2016-10-12 11:45 | REP ---
Clinical: Chest pain . Comparison: 04/23/2014 . Findings: The mediastinum and cardiac silhouette are stable and within normal limits for portable technique. The lung bosch are clear without acute consolidation, effusion, or pneumothorax. Skeletal structures are intact. Impression: Normal portable chest x-ray Signed by Ariel Cervantes MD 10/12/2016 11:37 A
[2016-10-12] MEDS: NITROGLYCERIN 0.4 MG SUBL TABLET SL PRN ×2 (11:51→12:00)
[2016-10-12] MEDS ORDERED: PANTOPRAZOLE 40MG INJ (PROTONIX) (C9113) IV ONE (15:45)
[2016-10-12] MEDS ORDERED: ARNU1INH3 INH (18:42)
[2016-10-12] MEDS ORDERED: TRAM50TA2 PO (18:42)
[2016-10-12] MEDS ORDERED: MELA5TAB21 PO (18:42)
[2016-10-12] MEDS ORDERED: DULO1CAP2 PO (18:42)
[2016-10-12] MEDS ORDERED: ASPI81TA7 PO (18:42)
[2016-10-12] MEDS ORDERED: ANOR1AER INH (18:42)
[2016-10-12] MEDS ORDERED: MAALOX 30 ML SUSP *UDC PO PRN (18:45)
[2016-10-12] MEDS ORDERED: traMADol 50 MG TAB PO PRN (18:45)
[2016-10-12] MEDS ORDERED: ACETAMINOPHEN TAB 650MG DOSE (2X325MG) PO PRN (18:45)
[2016-10-12] MEDS ORDERED: IPRATROPIUM 0.5MG/ALBUTEROL 2.5MG INH SOL UD 3ML (DUONEB)(J7620) NEB PRN (18:45)
[2016-10-12] MEDS: IPRATROPIUM 0.5MG/ALBUTEROL 2.5MG INH SOL UD 3ML (DUONEB)(J7620) NEB SCH (19:52)
[2016-10-12 20:12] VITALS: PULSE 56
[2016-10-12 20:15] VITALS: BP 155/71
[2016-10-12] MEDS: ENOXAPARIN 40 MG/0.4 ML SYRINGE (J1650) SC SCH (20:38)
[2016-10-12] MEDS: FAMOTIDINE 20 MG TAB PO SCH (20:38)
[2016-10-12] MEDS: GEMFIBROZIL 600 MG TAB PO SCH (20:38)
[2016-10-12] MEDS: PANTOPRAZOLE 40MG TAB (PROTONIX) PO SCH (20:38)
[2016-10-12] MEDS: METOPROLOL TART 25 MG TABLET PO SCH (20:48)
--- NOTE | 2016-10-12 20:57 | HPE ---
DATE OF ADMISSION: 10/12/2016 PRIMARY CARE PROVIDER: Mague Brown NP LEAD INSPECTOR: Antolin Hawk MD, covered by Jeff Rizvi MD CHIEF COMPLAINT: Chest pain. HISTORY OF PRESENT ILLNESS: This is a 55-year-old female patient with underlying medical history of coronary artery disease with stents in the past in 2011, hypertension, gastroesophageal reflux disease (GERD), environmental allergies, on aspirin and Plavix. Patient presented stating that earlier this morning around 9:30 when the patient was in the shower with acute onset substernal chest pain that is sharp, radiating to bilateral jaw, with no exacerbating factor, reported initially pain to be 8/10, relieved with nitroglycerin to about 5/10, lasting until around 11 o'clock, but has been pretty persistent, waxing and waning from about 3-4 out of 10 in the emergency room. Patient reported that previous myocardial infarction (TN) the pain was radiating down her arm and not to her jaw. Denies any fevers, chills, cough, shortness of breath. Baseline has chronic bronchitis. Ambulatory at baseline. On aspirin, Plavix, and Lipitor. Denies any palpitations, fevers, chills, sick contacts, recent travel. In the emergency room, cardiac enzymes were repeated three times, have been negative. Patient is active smoker. Case was discussed with Dr. Rizvi and recommended admission for observation and will consider possible transfer tomorrow versus outpatient management. Serial cardiac enzymes overnight. Continue aspirin and Plavix as per Dr. Rizvi. No need for anticoagulation full dose, deep venous thrombosis (DVT) prophylaxis with Lovenox is sufficient. ALLERGIES: Tape and also environmental allergies. PAST MEDICAL HISTORY: 1. Coronary artery disease. 2. Hypertension. 3. Chronic bronchitis. 4. Chronic back pain. 5. GERD. 6. Environmental allergies. PAST SURGICAL HISTORY: 1. Cholecystectomy. 2. Hysterectomy. 3. Knee surgeries. 4. Cardiac stent 2010 and 2011 to left anterior descending (LAD) artery. SOCIAL HISTORY: Patient smokes half a pack per day since she was 11. Counseling provided. Refusing nicotine patch. Drinks beers a couple of times a month, social drinking. No illicit drug use. No cocaine. FAMILY HISTORY: Both parents with coronary artery disease, father with TN in the 60s. REVIEW OF SYSTEMS: Patient reported jaw pain and chest pain. All other review of systems are negative. HOME MEDICATIONS: - Ventolin inhaler as needed - Ellipta inhalation daily - Breo inhalation daily - aspirin 81 mg daily - Lipitor 80 mg by mouth daily - Plavix 75 mg by mouth daily - duloxetine 30 mg by mouth nightly - gemfibrozil 600 mg by mouth twice a day - Claritin 10 mg by mouth daily - melatonin 5 mg by mouth nightly - metoprolol 25 mg by mouth twice a day - Singulair 10 mg by mouth daily - Protonix 40 mg by mouth twice a day - ranitidine 150 mg by mouth twice a day - tramadol 50 mg by mouth daily PHYSICAL EXAMINATION: VITAL SIGNS: Temperature 98.7, pulse 57, respirations 17, blood pressure 128/64, pulse oximetry 99% on room air. GENERAL: Patient alert and oriented times three, in no acute distress. HEENT: Normocephalic, atraumatic. PULMONARY: Bilateral clear to auscultation. No wheezes, rales, or rhonchi. CARDIAC: Regular rate and rhythm. Normal S1, S2. ABDOMEN: Soft, nontender, nondistended. Positive bowel sounds. EXTREMITIES: No edema bilateral lower extremities. NEUROLOGIC: No focal deficits. EKG sinus rhythm at 52, T wave inversion V1. LABORATORY DATA: WBC 7.4, hemoglobin and hematocrit 13.4/39.7, platelets 301. Chemistry: Sodium 143, potassium 4.2, chloride 110, bicarbonate 28, BUN 14, creatinine 0.96. Cardiac enzymes negative times three. Xrays within normal limits. ASSESSMENT AND PLAN: This is a 55-year-old female patient with underlying medical history of coronary artery disease, hypertension, dyslipidemia, smoking, gastroesophageal reflux disease (GERD), environmental allergies, chronic back pain, presented with chest pain. 1. Chest pain, unstable angina. Cardiac enzymes have been negative. Trend cardiac enzymes as per Dr. Rizvi. Serial EKGs. Telemetry monitoring. Aspirin, Plavix, statin, beta blockers. Cardiology, Dr. Rizvi, consulted. Smoking cessation counseling. Refused nicotine patch. Nitroglycerin given. Followup cardiology recommendations. 2. Hypertension. Continue metoprolol. Monitor blood pressure. 3. Dyslipidemia. Continue Lopid and atorvastatin. Continue to monitor. 4. Gastroesophageal reflux disease (GERD). Continue Protonix. Maalox as needed. 5. Chronic bronchitis. Continue Advair, nebulizer treatment. Patient not having any wheeze. 6. Chronic back pain. Continue home medication. 7. Environmental allergies. Supportive care. Continue home medication. 8. Deep venous thrombosis (DVT) prophylaxis. Lovenox subcutaneous. DISPOSITION PLANNING: Pending cardiology followup, serial cardiac enzymes, telemetry monitoring. Smoking cessation counseling provided. Patient refused nicotine patch. Smoking cessation time spent 5 minutes. Patient is aware that smoking is one of the major contributing factors to her coronary artery disease.
[2016-10-12] MEDS ORDERED: DULoxetine 30 MG CAP (CYMBALTA) PO SCH (21:00)
[2016-10-12] MEDS: ADVAIR DISKUS 250/50 INH PWD INH SCH (23:30)
[2016-10-13] VITALS: BP 143/68
[2016-10-13] MEDS: IPRATROPIUM 0.5MG/ALBUTEROL 2.5MG INH SOL UD 3ML (DUONEB)(J7620) NEB SCH ×2 (02:00→07:14)
[2016-10-13 04:00] VITALS: BP 144/69
[2016-10-13 06:07] LABS: MEAN CORPUSCULAR HGB CONC 33.7 g/dl (32.0-36.5); MEAN CORPUSCULAR VOLUME 91.8 fl (80.0-96.0); RED CELL DISTRIBUTION WIDTH 13.8 % (11.5-14.5)
[2016-10-13 06:36] LABS: ANION GAP 5 MEQ/L (8-16); BLOOD UREA NITROGEN 12 MG/DL (7-18); CALCIUM LEVEL 8.8 MG/DL (8.5-10.1); CARBON DIOXIDE LEVEL 29 MEQ/L (21-32); CHLORIDE LEVEL 111 MEQ/L (98-107); CREATININE FOR GFR 0.92 MG/DL (0.55-1.02); GLOMERULAR FILTRATION RATE > 60.0 (>51); GLUCOSE, FASTING 101 MG/DL (70-105); POTASSIUM SERUM 4.4 MEQ/L (3.5-5.1); SODIUM LEVEL 145 MEQ/L (136-145)
[2016-10-13 07:15] VITALS: BP 136/65
[2016-10-13] MEDS: ADVAIR DISKUS 250/50 INH PWD INH SCH (08:06)
[2016-10-13] MEDS ORDERED: SLF 3 ML SYR IV PRN (08:45)
[2016-10-13] MEDS: ENOXAPARIN 40 MG/0.4 ML SYRINGE (J1650) SC SCH (08:50)
[2016-10-13] MEDS: GEMFIBROZIL 600 MG TAB PO SCH (08:51)
[2016-10-13] MEDS: FAMOTIDINE 20 MG TAB PO SCH (08:51)
[2016-10-13 08:52] VITALS: BP 136/65
[2016-10-13] MEDS: METOPROLOL TART 25 MG TABLET PO SCH (08:52)
[2016-10-13] MEDS: PANTOPRAZOLE 40MG TAB (PROTONIX) PO SCH (08:52)
[2016-10-13] MEDS ORDERED: LORATADINE 10 MG TAB PO SCH (09:00)
[2016-10-13] MEDS ORDERED: CLOPIDOGREL 75 MG TAB PO SCH (09:00)
[2016-10-13] MEDS ORDERED: MONTELUKAST 10 MG TAB PO SCH (09:00)
[2016-10-13] MEDS ORDERED: ASPIRIN 81 MG ENTERIC TAB PO SCH (09:00)
[2016-10-13] MEDS ORDERED: ATORVASTATIN 20 MG TAB PO SCH (09:00)
[2016-10-13] MEDS ORDERED: NITR4TASL SL ×2 (11:57→12:00)
--- NOTE | 2016-10-13 13:50 | DS.PDOC ---
Discharge Summary General Date of Admission October 12, 2016 at 18:45 Date of Discharge 10/13/16 Attending Physician: YAJAIRA NAVA MD Specialist/Consultants Involve: DESIRAE RG MD Specialist/Consultants Involve PCP: Mague Brown ADMINISTRATIVE ASSISTANT FRONT DESK Discharge Summary Consults: Dr. Rg Cardiology Discharge diagnosis: Chest pain secondary to Costochondritis, less likely secondary to unstable angina. Secondary diagnosis: Coronary artery disease status post stent placement in the LAD 2011 Hypertension GERD Environmental allergies Chronic bronchitis Tobacco use disorder Chronic back pain Hospital course: Ms. Bartholomew is a 55-year-old female who presented to [facility] ED for chief complaint of chest pain that began on October 12 while patient was in the shower. Was acute, sharp, and radiated to the jaw bilaterally. Occurred spontaneously. Was relieved with nitroglycerin but not fully. Was waxing and waning in nature had come down in intensity while in the ED. Cardiac enzymes were found to be negative 3 in the ED and negative x [address] Rg was consulted. Patient was admitted to the inpatient service for overnight observation and chest pain rule out with cardiac enzymes. As per Dr. Rg's instructions, patient was continued on aspirin and Plavix and was not placed on full anticoagulation but rather Lovenox for DVT prophylaxis. Cardiology was consulted. Patient was placed on telemetry monitoring without any abnormal events reported. Serial EKGs were done done which were unremarkable and showed no acute concerning changes. Patient was also given atorvastatin 80 mg, gemfibrozil 600 mg twice a day, and metoprolol 25 mg twice a day. Her home medications were continued. Patient reported improvement in symptoms and does not complain of chest pain at rest today. States she is feeling fine today and would like to go home. Patient remained hemodynamically stable throughout hospital stay. Progress note on date of discharge: Subjective: Patient seen and examined at bedside.Denies fevers, chills, chest pain, shortness of breath, headache, dizziness, sore throat, cough, abdominal pain, nausea, diaphoresis, vomiting, diarrhea, constipation, hematochezia, hematuria. Admits to reflux. Objective: Vitals: Temperature 99.3, pulse 71, respiratory rate 18, blood pressure 136/65, pulse ox: 98% room air General: Awake, alert, oriented 3. Pleasant and cooperative adult female in no acute distress, lying comfortably in bed. HEENT: Normocephalic atraumatic, grossly normal hearing bilaterally, sclera non- icteric, nose without external lesions. Neck: Supple. Chest: Symmetrical chest rise bilaterally. Positive tenderness to palpation of the mid sternal area and reproducible chest pain laterally across ribs next to sternum. Heart: Regular rate and rhythm, normal S1-S2. No murmurs, rubs, clicks or gallops Lungs: Clear to auscultation bilaterally. No wheezes, rales or rhonchi Abdomen: Active bowel sounds, soft, no masses to palpation, positive generalized tenderness to palpation in the lower abdomen bilaterally. Integumentary: No rashes or lesions noted anywhere. Extremities: No edema in lower extremities bilaterally. Neurological: No focal neurological deficits appreciated bilaterally. Vascular: +2 dorsalis pedis and radial pulses bilaterally. Labs: Please see below. Troponin negative 4. Imaging: Chest x-ray: Unremarkable. EKG: Showed no ischemic changes. Assessment: This is a 55-year-old female who presented with acute chest pain likely secondary to costochondritis, less likely secondary to unstable angina. Disposition: Home. Continue current medication regimen. Nitroglycerin has been prescribed for use for PRN chest pain. Follow-up: With Dr. Hawk in office within 1-2 weeks. Follow up with PCP within 1-2 weeks. Note given for work for one week. Activity: As tolerated. Diet: Low-fat, low-cholesterol. Medications on discharge: Please see below. Time spent on discharge: 35 minutes. Vital Signs/I&Os Vital Signs Date Time Temp Pulse Resp B/P (MAP) Pulse Ox O2 Delivery O2 Flow Rate FiO2 10/13/16 08:52 71 136/65 10/13/16 07:15 99.3 18 98 Room Air I&O- Last 24 Hours up to 6 AM 10/13/16 06:00 Intake Total 75 ml Output Total 1100 ml Balance -1025 ml Laboratory Data Labs 24H Laboratory Tests 2 10/12/16 16:10: Total Creatine Kinase 196H, Creatine Kinase MB 1.0, Creatine Kinase MB Relative Index 0.51, Troponin I < 0.02 10/12/16 21:58: Total Creatine Kinase 128, Creatine Kinase MB 1.0, Creatine Kinase MB Relative Index 0.78, Troponin I < 0.02 10/13/16 06:03: Total Creatine Kinase 112, Creatine Kinase MB 1.0, Creatine Kinase MB Relative Index 0.89, Troponin I < 0.02, Anion Gap 5L, Glomerular Filtration Rate > 60.0, Blood Urea Nitrogen 12, Creatinine 0.92, Sodium Level 145, Potassium Level 4.4, Chloride Level 111H, Carbon Dioxide Level 29, Calcium Level 8.8, Magnesium Level 2.0 CBC/BMP Laboratory Tests 10/13/16 06:03 Red Blood Count 4.13, Mean Corpuscular Volume 91.8, Mean Corpuscular Hemoglobin 31.0, Mean Corpuscular Hemoglobin Concent 33.7, Red Cell Distribution Width 13.8 , Calcium Level 8.8 Discharge Medications Scheduled (Arnuity Ellipta) 200 Mcg/Act Inh, 200 MCG INH DAILY, (Reported) (Anoro Ellipta 62.5-25 Mcg/INH) 1 Aer Aer, 1 AER INH DAILY, (Reported) Aspirin (Aspirin) 81 Mg Tab, 81 MG PO DAILY, (Reported) Atorvastatin Calcium (Lipitor) 80 Mg Tab, 80 MG PO DAILY, (Reported) Clopidogrel Bisulfate (Plavix) 75 Mg Tab, 75 MG PO DAILY, (Reported) Duloxetine Hcl (Duloxetine HCl) 30 Mg Cap, 30 MG PO QHS, (Reported) Gemfibrozil (Gemfibrozil) 600 Mg Tab, 600 MG PO BID, (Reported) Loratadine (Claritin) 10 Mg Cap, 10 MG PO DAILY, (Reported) Melatonin (Melatonin) 5 Mg Tab, 5 MG PO QHS, (Reported) Metoprolol Tartrate (Metoprolol Tartrate) 25 Mg Tab, 25 MG PO BID, (Reported) Montelukast Sodium (Singulair) 10 Mg Tab, 10 MG PO DAILY, (Reported) Pantoprazole Sodium Sesquihydr (Protonix) 40 Mg Tab, 40 MG PO BID, (Reported) Ranitidine HCl (Ranitidine [address]) 150 Mg Tab, 1 TAB PO BID, (Reported) Scheduled PRN Albuterol Sulfate (Ventolin Hfa) 200 Puff/8 Gm Aers, 1-2 PUFFS INH PRN PRN for SOB/WHEEZING, (Reported) Nitroglycerin (Nitrostat) 0.4 Mg Subl, 0.4 MG SL Q5M PRN for CHEST PAIN Please use for chest pain. If pain unrelieved in 5 minutes after 1 dose, please make sure to call 911, visit the ED immediately if this occurs. Tramadol HCl (Tramadol HCl) 50 Mg Tab, 50 MG PO DAILY PRN for PAIN, (Reported) Allergies Coded Allergies: TAPE (Verified Adverse Reaction, Intermediate, SKIN IRRITATION, 03/15/15) TEGADERM GME ATTESTATION GME ATTESTATION My preceptor for this patient encounter was Dr. Yajaira Nava, and was physically present in the building during the encounter and was fully available. As needed, all aspects of the patient interview, examination, medical decision making process, and medical care plan development were reviewed and approved by the preceptor. Preceptor is aware and concurs with the plan as stated in the body of this note and will attest to such by his/her cosignature. LUC CARROLL OGME-1 October 13, 2016 13:46
[2016-10-13] MEDS ORDERED: SLF 3 ML SYR IV SCH (14:00)
--- NOTE | 2016-10-13 14:42 | CR ---
DATE OF CONSULTATION: 10/13/2016 REFERRING PROVIDER: Dr. Monique Muñiz. PRIMARY CARE PROVIDER: Mague Brown NP. PRIMARY COMPLIANCE FIELD TECHNICIAN: Dr. Nohemi Hawk. REASON FOR CONSULT: Chest pain. HISTORY OF PRESENT ILLNESS: 55-year-old woman who is known by the office with a history of premature coronary artery disease, hypertension, hyperlipidemia, gastroesophageal reflux disease (GERD) and smoking, has been stable from cardiac point of view. She does also have a history of non-ST elevation myocardial infarction as well as percutaneous transluminal coronary angioplasty/drug eluting stent. Yesterday, at rest and after shower, she developed sudden onset of substernal chest pain with radiation to the jaw and relieved with nitroglycerine. There was no diaphoresis, dizziness or syncope. It was associated with shortness of breath. Because there are some similarity to the chest pain she had when she had her heart attack, she decided to come to the ER for further evaluation. She was admitted for observation. Cardiology consult was called. When I saw Ms. Janina Bartholomew this morning, she was in supine in bed in no acute distress at rest. She has not been having any chest pain in the hospital and she has been ambulating. Her serum troponin remained normal and there is no significant changes in electrograms. She has been ambulating and she denies any shortness of breath or palpitations, dizziness. She has no focal manifestation. She has no pedal edema, orthopnea or syncope. She is willing to go home and follow as outpatient. She denies any cough or hemoptysis. She has no nausea, vomiting, diarrhea, melena or hematemesis. She has occasional heartburn and she has been on treatment for that. She has no dysuria, polyuria or hematuria. There is no acute sweating or redness of the joints. PAST MEDICAL HISTORY: Positive as mentioned above for coronary artery disease with history of percutaneous transluminal coronary angioplasty/ADELE when she was about 48 and this was followed by a non-ST elevation myocardial infarction. She also has a history of hypertension, hyperlipidemia, smoking, obesity, arthritis, gastroesophageal reflux disease, and chronic bronchitis. There is no history of diabetes mellitus, kidney disease, thyroid disorders, significant valvular heart disease, cardiomyopathy /left ventricular systolic dysfunction, cerebrovascular accident (CVA), atrial fibrillation. PAST SURGICAL HISTORY: Positive for: Cholecystectomy. Hysterectomy. Knee surgeries. Otherwise unremarkable. FAMILY HISTORY: Positive for heart disease, both parents. SOCIAL HISTORY: Patient currently lives alone. She does smoke about half pack per day of cigarettes. She has been trying to quit. She denies any ETOH abuse. She denies any illicit elicit drugs. ADVANCED DIRECTIVES: Patient is a full code. CURRENT MEDICATIONS: - aspirin 81 mg by mouth daily - atorvastatin 80 mg by mouth daily - Plavix 75 mg by mouth daily - Singulair 10 mg by mouth daily - loratadine 10 mg by mouth daily - Cymbalta/duloxetine 30 mg by mouth at bedtime - gemfibrozil 1600 mg by mouth twice a day - metoprolol tartrate 25 mg by mouth twice daily - pantoprazole 40 mg by mouth twice a day - famotidine 20 mg by mouth twice daily - Advair discus 250/50 one puff twice a day - DuoNeb one nebulizer every 6 hours - Mylanta 30 mL by mouth every 6 hours as needed for heartburn - Tylenol 650 mg every 4 hours as needed for mild pain or fever - tramadol 50 mg by mouth daily as needed for mild pain - nitroglycerine sublingual 0.4 mg as needed for chest pain - Lovenox 40 mg subcutaneous daily PHYSICAL EXAMINATION: Patient is alert and oriented, in no acute distress at rest. Last vital signs this morning revealed a blood pressure of 136/65 with pulse of 71, respirations 18 and maximum temperature is 99.3 degrees Fahrenheit with an oxygen saturation of 98% on room air. Examination of the head is normocephalic, atraumatic. Neck is supple, no jugular venous distention (JVD) or carotid bruits. Lungs: Clear bilaterally without any wheezing or crackles. Heart examination revealed normal S1 and S2, without gallops, PMI is not displaced. There is no rub. I could not appreciate any murmurs. Abdomen is unremarkable, soft. Extremities: No pedal edema. Peripheral pulses, dorsalis pedis +2. Neurological examination is negative for focal deficit. LABS: BMP done today shows sodium of 145, potassium 4.4, chloride 111, CO2 29, BUN 12, creatinine 0.92, glomerular filtration rate more than 60. Fasting glucose 101, calcium 8.8. Magnesium is 2.0. Troponin I is less than 0.02. BMP on admission revealed a sodium of 143, potassium 4.2, chloride 110, CO2 28, BUN 14, creatinine 0.96, glomerular filtration rate more than 60, fasting glucose 103, calcium 8.8. CBC done today revealed a WBC of 7.0, hemoglobin 12.8, hematocrit 37.9, platelets 293,000. On admission 10/12/2016, CBC revealed a WBC of 7.4, hemoglobin 13.4, hematocrit 39.7 and platelets 301,000. Chest x-ray was reviewed and revealed no acute disease process. Electrocardiogram done yesterday upon arrival at about 10:58:06 on 10/12/2016 revealed normal sinus rhythm at 58 beats per minute and nonspecific ST-T abnormalities noted in the inferior leads and repeat EKG done the same day at 13:20:05 revealed no significant changes but minimal ST abnormalities noted from leads V1 to V3. At 15:59:22, repeat EKG was similar to the first EKG. The ST-T abnormalities noted in the right pericardial lead was no longer present. Those EKGs were compared to last EKG on 02/21/2014 at 16:04:48, no remarkable changes. Mrs. Janina Bartholomew seems to be stable from a cardiac point of view and she has been asymptomatic since in the hospital and assume troponin remains normal and her EKG did not reveal any significant changes. Her physical examination is benign and blood pressure is normal. I believe she can go home with diagnose of atypical chest pain in the setting of history of coronary artery disease with prior myocardial infarction and prior percutaneous transluminal coronary angioplasty/stent to the LAD, hypertension and hyperlipidemia, smoking. She is well aware to come back to the hospital if she starts having chest pain. Otherwise she will be seen as outpatient. She may continue the same medications. We have discussed smoking cessation, but at this present time, she does not appear to be quite ready to quit. It was a pleasure to participate in the care of Mrs. Janina Bartholomew for her underlying cardiac condition. Case was discussed with hospitalist and patient will go home today for followup as outpatient. She will continue the same medications. She will come back to the hospital if she starts again having chest pain. DARREL
--- NOTE | 2016-10-14 06:26 | ECGEPIP ---
Stationary ECG Study 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
--- NOTE | 2016-10-14 06:30 | ECGEPIP ---
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
--- NOTE | 2016-10-14 07:12 | ECGEPIP ---
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
== END 2016-10-13 13:28 | disposition home or self-care (01) ==
LOC: EDBD 10:34 → M ED 11:30 → M ED INP 18:45 → M PCU 20:12
PROVIDERS: ADMIT Hospitalist; ATTEND Internal Medicine
DX: R07.9 Chest pain, unspecified (principal); I25.10 Atherosclerotic heart disease of native coronary artery without angina pectoris; Z98.61 Coronary angioplasty status; I10 Essential (primary) hypertension; J42 Unspecified chronic bronchitis; F17.210 Nicotine dependence, cigarettes, uncomplicated; Z79.82 Long term (current) use of aspirin; Z79.899 Other long term (current) drug therapy; Z79.02 Long term (current) use of antithrombotics/antiplatelets

== ENCOUNTER 2016-11-03 08:28 | Emergency (ER) | payer OTHER ==
[~2016-11-03] VITALS: Ht 160 cm; Wt 167.0 kg
[~2016-11-03 08:28] MED LIST changes: +ANOR1AER INH; +ARNU1INH3 INH; +ASPI1TAB15 PO; +CYMB1CAP4 PO; +DULO1CAP2 PO; +MELA5TAB21 PO; +METO25TA4 PO; +NITR4TASL SL; +PLAV1TAB2 PO; -PLAV75TA38 PO; +TRAM50TA2 PO; -VITA100037 PO; +VITA100067 PO
[2016-11-03] MEDS ORDERED: CLOP75TA2 (09:06)
[2016-11-03] MEDS ORDERED: NORCO, ANEXSIA 5/325MG TABLET (HYDROcodone/ACETAMINOPHEN) PO ONE (10:45)
[2016-11-03] MEDS ORDERED: NORCOTAB PO (11:50)
--- NOTE | 2016-11-03 11:56 | REP ---
LEFT KNEE SERIES: Five views of the left knee performed. There is no evidence of acute fracture or dislocation. There is mild medial joint space narrowing with subchondral sclerosis. There is spurring of the tibial spines and mild spurring at the medial margin of the joint. There is a moderate joint effusion in the suprapatellar bursa. IMPRESSION: Degenerative changes without fracture or dislocation. Moderate joint effusion. Signed by Dayton Gregg MD 11/03/2016 08:18 P
[2016-11-03 12:00] VITALS: BP 138/79
[2017-03-01] MEDS ORDERED: GEMF600T PO (14:54)
== END 2016-11-03 12:09 | disposition home or self-care (01) ==
LOC: M ED 09:49
DX: S83.92XA Sprain of unspecified site of left knee, initial encounter (principal); M25.462 Effusion, left knee; X58.XXXA Exposure to other specified factors, initial encounter; Y92.89 Other specified places as the place of occurrence of the external cause; Y93.89 Activity, other specified; Y99.0 Civilian activity done for income or pay; I10 Essential (primary) hypertension; I25.10 Atherosclerotic heart disease of native coronary artery without angina pectoris; E78.00 Pure hypercholesterolemia, unspecified; F41.9 Anxiety disorder, unspecified; F32.9 Major depressive disorder, single episode, unspecified; M51.9 Unspecified thoracic, thoracolumbar and lumbosacral intervertebral disc disorder; F17.200 Nicotine dependence, unspecified, uncomplicated; Z91.048 Other nonmedicinal substance allergy status; Z79.899 Other long term (current) drug therapy; Z79.02 Long term (current) use of antithrombotics/antiplatelets; Z79.82 Long term (current) use of aspirin

== ENCOUNTER 2016-11-27 10:41 | Emergency (ER) | payer OTHER ==
[~2016-11-27] VITALS: Ht 160 cm; Wt 75.0 kg
[~2016-11-27 10:41] MED LIST changes: +CLOP75TA2; +NORCOTAB PO
[2016-11-27] MEDS ORDERED: HYDROmorphone HCL 1 MG/ML SYRINGE (J1170) IM ONE (12:30)
--- NOTE | 2016-11-27 13:00 | REP ---
LUMBOSACRAL SPINE: Five views of the lumbosacral spine are performed. There is no compression fracture. There is minimal anterior spondylolisthesis of L4 on L5 due to posterior facet arthropathy. This appears to be present on the prior study of 07/19/2015. There is mild diffuse spurring. There is mild disc space narrowing and subchondral sclerosis at L2-3. There is diffuse sclerosis and spurring at the posterior facet joints. Posterior elements are intact. IMPRESSION: Degenerative changes without fracture or dislocation. Signed by Dayton Gregg MD 11/27/2016 03:56 P
[2016-11-27] MEDS ORDERED: HYDR-3713 PO (13:34)
[2016-11-27 13:35] VITALS: BP 135/63
[2017-03-01] MEDS ORDERED: GEMF600T PO (14:54)
== END 2016-11-27 13:46 | disposition home or self-care (01) ==
LOC: M ED 10:41
DX: M54.5 Low back pain (principal); I10 Essential (primary) hypertension; E78.00 Pure hypercholesterolemia, unspecified; I25.2 Old myocardial infarction; G47.30 Sleep apnea, unspecified; F17.200 Nicotine dependence, unspecified, uncomplicated; M51.36 Other intervertebral disc degeneration, lumbar region; F41.9 Anxiety disorder, unspecified; F32.9 Major depressive disorder, single episode, unspecified; D25.9 Leiomyoma of uterus, unspecified; Z98.1 Arthrodesis status; Z95.5 Presence of coronary angioplasty implant and graft; Z90.79 Acquired absence of other genital organ(s); Z87.440 Personal history of urinary (tract) infections; Z79.82 Long term (current) use of aspirin; Z79.51 Long term (current) use of inhaled steroids; Z79.02 Long term (current) use of antithrombotics/antiplatelets; Z79.899 Other long term (current) drug therapy

== ENCOUNTER → 2016-12-20 | Outpatient (CLI) | payer OTHER ==
[~2016-12-20] MED LIST changes: +HYDR-3713 PO
[2016-12-20 10:26] LABS: BASO % 0.3 % (0.0-1.0); EOS # 0.2 K/mm3 (0.0-0.50); EOS % 3.7 % (0.0-3.0); LYMPH # 1.9 K/mm3 (1.5-4.5); LYMPH % 25.2 % (24.0-44.0); MEAN CORPUSCULAR HEMOGLOBIN 31.5 pg (27.0-33.0); MEAN CORPUSCULAR HGB CONC 34.3 g/dl (32.0-36.5); MEAN CORPUSCULAR VOLUME 91.8 fl (80.0-96.0); MONO # 0.5 K/mm3 (0.0-0.8); NEUTROPHILS # 4.1 K/mm3 (1.8-7.7); NEUTROPHILS % 61.5 % (36.0-66.0); RED CELL DISTRIBUTION WIDTH 14.3 % (11.5-14.5); WHITE BLOOD COUNT 6.7 K/mm3 (4.0-10.0)
[2016-12-20 10:58] LABS: ALBUMIN 3.9 GM/DL (3.2-5.2); ALBUMIN/GLOBULIN RATIO 1.26 (1.00-1.93); ALKALINE PHOSPHATASE 131 U/L (45-117); ALT/SGPT 22 U/L (12-78); ANION GAP 9 MEQ/L (8-16); AST/SGOT 19 U/L (15-37); BILIRUBIN,TOTAL 0.3 MG/DL (0.2-1.0); BLOOD UREA NITROGEN 15 MG/DL (7-18); CALCIUM LEVEL 9.3 MG/DL (8.5-10.1); CARBON DIOXIDE LEVEL 28 MEQ/L (21-32); CHLORIDE LEVEL 113 MEQ/L (98-107); CHOLESTEROL LEVEL 199 MG/DL (<200); CREATININE FOR GFR 0.99 MG/DL (0.55-1.02); FREE T4 0.85 NG/DL (0.76-1.46); GLOMERULAR FILTRATION RATE > 60.0 (>51); GLUCOSE, FASTING 112 MG/DL (70-105); POTASSIUM SERUM 4.4 MEQ/L (3.5-5.1); SODIUM LEVEL 150 MEQ/L (136-145); TRIGLYCERIDES LEVEL 234 MG/DL (<150)
== END ==
LOC: M LAB 09:41
PROVIDERS: ATTEND Nurse Practitioner Adult Health
DX: E78.4 Other hyperlipidemia (principal); E55.9 Vitamin D deficiency, unspecified; R73.9 Hyperglycemia, unspecified

== ENCOUNTER → 2017-02-18 | Outpatient (CLI) | payer OTHER ==
--- NOTE | 2017-02-18 17:26 | REP ---
MRI LUMBAR SPINE WITHOUT CONTRAST: HISTORY: Back pain. COMPARISON: 03/14/2014 Decreased signal intensity on T2-weighted images is present in the L2-3 through L5-S1 intervertebral discs. The discs are decreased in height. These findings are consistent with disc degeneration. There is no disc bulge or herniation at the L1-2 level. There is hypertrophy of the posterior articulating facets. The L1 nerves exit the neural foramina without compression. A diffuse disc bulge is present at the L2-3 level. There is hypertrophy of the ligamenta flava and posterior articulating facets. These findings produce mild central canal stenosis. The L2 nerves exit the neural foramina without compression. A diffuse disc bulge is present at the L3-4 level. There is hypertrophy of ligamenta flava and posterior articulating facets. These findings produce mild central canal stenosis. The L3 nerves exit the neural foramina without compression. A diffuse disc bulge is present at the L4-5 level. There is hypertrophy of the ligamenta flava and posterior articulating facets. There are 3 mm of grade 1 spondylolisthesis of L4 on L5. These findings produce mild central canal stenosis. The L4 nerves exit the neural foramina without compression. A diffuse disc bulge is present at the L5-S1 level. There is no thecal sac compression. There is hypertrophy of the posterior articulating facets. The L5 nerves exit the neural foramina without compression. The conus medullaris is normal in appearance terminating at the level of the L1 intervertebral disc. Increased signal intensity on T2-weighted images is present in the endplates of the L2 through L4 vertebral bodies. This represents degenerative change. IMPRESSION: 1. Mild central canal stenosis at the L2-3 and L3-4 levels secondary to disc bulge, ligamentous and facet hypertrophy. 2. Mild central canal stenosis at the L4-5 level secondary to disc bulge, ligamentous and facet hypertrophy and grade 1 spondylolisthesis. The spondylolisthesis is a new finding. 3. Diffuse disc bulge at the L5-S1 level without thecal sac compression. This is a new finding. Signed by Marcel Prieto MD 02/18/2017 05:34 P
== END ==
LOC: M RAD 14:17
PROVIDERS: ATTEND Neurological Surgery
DX: M12.89 Other specific arthropathies, not elsewhere classified, multiple sites (principal); M51.36 Other intervertebral disc degeneration, lumbar region; M54.5 Low back pain; M47.26 Other spondylosis with radiculopathy, lumbar region

== ENCOUNTER → 2017-03-28 | Outpatient (CLI) | payer OTHER ==
[2017-03-28 12:32] LABS: BASO % 0.3 % (0.0-1.0); EOS # 0.4 10^3/uL (0.0-0.50); EOS % 4.5 % (0.0-3.0); IMMATURE GRANULOCYTE % 0.4 % (0-0); LYMPH # 2.7 10^3/uL (1.5-4.5); LYMPH % 34.4 % (24.0-44.0); MEAN CORPUSCULAR HEMOGLOBIN 30.5 pg (27.0-33.0); MEAN CORPUSCULAR HGB CONC 32.4 g/dl (32.0-36.5); MEAN CORPUSCULAR VOLUME 94.2 fl (80.0-96.0); MONO # 0.7 10^3/uL (0.0-0.8); MONO % 9.4 % (0.0-5.0); PLATELET COUNT, AUTOMATED 311 10^3/uL (150-450); RED CELL DISTRIBUTION WIDTH 14.3 % (11.5-14.5); WHITE BLOOD COUNT 7.8 10^3/uL (4.0-10.0)
[2017-03-28 13:14] LABS: ALBUMIN 3.9 GM/DL (3.2-5.2); ALBUMIN/GLOBULIN RATIO 1.44 (1.00-1.93); ALKALINE PHOSPHATASE 130 U/L (45-117); ALT/SGPT 20 U/L (12-78); ANION GAP 6 MEQ/L (8-16); AST/SGOT 12 U/L (7-37); BILIRUBIN,TOTAL 0.3 MG/DL (0.2-1.0); BLOOD UREA NITROGEN 21 MG/DL (7-18); CALCIUM LEVEL 9.1 MG/DL (8.5-10.1); CARBON DIOXIDE LEVEL 29 MEQ/L (21-32); CHLORIDE LEVEL 111 MEQ/L (98-107); CHOLESTEROL LEVEL 230 MG/DL (<200); CREATININE FOR GFR 0.85 MG/DL (0.55-1.02); FREE T4 0.83 NG/DL (0.76-1.46); GLOMERULAR FILTRATION RATE > 60.0 (>51); GLUCOSE, FASTING 101 MG/DL (70-105); POTASSIUM SERUM 4.9 MEQ/L (3.5-5.1); SODIUM LEVEL 146 MEQ/L (136-145); TOTAL PROTEIN 6.6 GM/DL (6.4-8.2); TRIGLYCERIDES LEVEL 176 MG/DL (<150)
== END ==
LOC: M LAB 11:35
PROVIDERS: ATTEND Nurse Practitioner Adult Health
DX: R73.9 Hyperglycemia, unspecified (principal); E78.00 Pure hypercholesterolemia, unspecified; R74.9 Abnormal serum enzyme level, unspecified; E55.9 Vitamin D deficiency, unspecified; Z79.899 Other long term (current) drug therapy

== ENCOUNTER 2017-05-24 11:59 | Emergency (ER) | payer OTHER | END 2017-05-24 15:09 | disposition home or self-care (01) | LOC: M ED 11:59 | DX: M70.51 Other bursitis of knee, right knee (principal); I25.10 Atherosclerotic heart disease of native coronary artery without angina pectoris; J44.9 Chronic obstructive pulmonary disease, unspecified; M54.9 Dorsalgia, unspecified; G89.29 Other chronic pain; F17.210 Nicotine dependence, cigarettes, uncomplicated; Z88.5 Allergy status to narcotic agent; Z91.048 Other nonmedicinal substance allergy status; Z79.899 Other long term (current) drug therapy; Z79.02 Long term (current) use of antithrombotics/antiplatelets; Z79.51 Long term (current) use of inhaled steroids | CPT/HCPCS: 93971 ==

== ENCOUNTER → 2017-06-10 | Outpatient (CLI) | payer OTHER ==
[2017-06-10 08:32] LABS: BASO % 0.4 % (0.0-1.0); EOS # 0.3 10^3/uL (0.0-0.50); EOS % 2.8 % (0.0-3.0); HEMOGLOBIN 13.4 g/dl (12.0-16.0); IMMATURE GRANULOCYTE % 0.3 % (0-0); LYMPH # 2.3 10^3/uL (1.5-4.5); LYMPH % 25.7 % (24.0-44.0); MEAN CORPUSCULAR HEMOGLOBIN 30.7 pg (27.0-33.0); MEAN CORPUSCULAR HGB CONC 33.5 g/dl (32.0-36.5); MEAN CORPUSCULAR VOLUME 91.5 fl (80.0-96.0); MONO # 0.6 10^3/uL (0.0-0.8); MONO % 6.9 % (0.0-5.0); NEUTROPHILS # 5.8 10^3/uL (1.8-7.7); NEUTROPHILS % 63.9 % (36.0-66.0); PLATELET COUNT, AUTOMATED 333 10^3/uL (150-450); RED BLOOD COUNT 4.37 10^6/uL (4.00-5.40); WHITE BLOOD COUNT 9.1 10^3/uL (4.0-10.0)
[2017-06-10 08:56] LABS: ALBUMIN 3.9 GM/DL (3.2-5.2); ALBUMIN/GLOBULIN RATIO 1.34 (1.00-1.93); ALKALINE PHOSPHATASE 119 U/L (45-117); ALT/SGPT 20 U/L (12-78); ANION GAP 5 MEQ/L (8-16); AST/SGOT 15 U/L (7-37); BILIRUBIN,TOTAL 0.5 MG/DL (0.2-1.0); BLOOD UREA NITROGEN 18 MG/DL (7-18); CALCIUM LEVEL 9.1 MG/DL (8.5-10.1); CARBON DIOXIDE LEVEL 29 MEQ/L (21-32); CHLORIDE LEVEL 111 MEQ/L (98-107); CHOLESTEROL LEVEL 227 MG/DL (<200); CHOLESTEROL RISK RATIO 5.279 (<5); CREATININE FOR GFR 0.94 MG/DL (0.55-1.02); FREE T4 0.96 NG/DL (0.76-1.46); GLOMERULAR FILTRATION RATE > 60.0 (>51); GLUCOSE, FASTING 106 MG/DL (70-100); HDL CHOLESTEROL 43 MG/DL (>40); LDL CHOLESTEROL 139.4 MG/DL (<100); MALB URINE SIEMENS 12.4 MG/L; MAU/CREAT RATIO 7.8 MCG/MG (0.0-30.0); NON-HDL-C 184 MG/DL; POTASSIUM SERUM 4.8 MEQ/L (3.5-5.1); SODIUM LEVEL 145 MEQ/L (136-145); TOTAL PROTEIN 6.8 GM/DL (6.4-8.2); TRIGLYCERIDES LEVEL 223 MG/DL (<150)
[2017-06-10 09:11] LABS: ESTIMATED AVERAGE GLUCOSE 120 MG/DL (60-110); HEMOGLOBIN A1c 5.8 %
[2017-06-10 11:31] LABS: TOTAL 25(OH) VITAMIN D 37.2 NG/ML (30.0-100.0)
== END ==
LOC: M LAB 07:42
DX: Z01.812 Encounter for preprocedural laboratory examination (principal); J45.909 Unspecified asthma, uncomplicated; J44.9 Chronic obstructive pulmonary disease, unspecified; R73.9 Hyperglycemia, unspecified; E78.00 Pure hypercholesterolemia, unspecified; R74.9 Abnormal serum enzyme level, unspecified; Z79.899 Other long term (current) drug therapy; E55.9 Vitamin D deficiency, unspecified
CPT/HCPCS: 71046

== ENCOUNTER 2017-06-24 07:12 | Day surgery (SDC) | payer OTHER ==
[~2017-06-24 07:12] MED LIST changes: -/ESOM40CA OR; +ACETAMINOPHEN 325 MG TAB PO; -ALBU17IN INH; -ANOR1AER INH; -ARNU1INH INH; -ARNU1INH3 INH; -ASPI1TAB15 PO; -ASPI81TA83 OR; -CLAR10CA3 PO; -CLOP75TA2; -CRES20TA OR; -CYMB1CAP4 PO; -DOCU10CA PO; -DOK100TA PO; -DULO1CAP2 PO; -GEMF600T PO; -HYDR-3713 PO; -LIPI80TA PO; -LYRI150C OR; -MECL-68 PO; -MELA5TAB21 PO; -METO25TA4 PO; +MIDAZOLAM INJ 2 MG/2 ML VIAL (J2250) As Ordered; -NITR4TASL SL; -NORCOTAB PO; +PHENYLEPHRINE HCL 10 % OPHTH. SOL 5ML OD; -PLAV1TAB2 PO; +PROPARACAINE 0.5% OPHTH SOL 15ML OD; -PROT1TAB2 PO; -RANI1TAB6 PO; -SING10TA32 PO; -TRAM50TA2 PO; -VITA100067 PO; -VITATAB73 PO; -ZANA4CAP OR; +fentaNYL 100 MCG/2 ML INJECTION (J3010) As Ordered; -metoprolol PO
[2017-06-24] MEDS: LIDOCAINE 3.5 % 1ML OPHTH TOPICAL GEL OU (07:55)
[2017-06-24] MEDS: OFLOXACIN 0.3 % (OCUFLOX) OPTH SOL 5ML OD (07:55)
[2017-06-24] MEDS: TROPICAMIDE 1% OPHTH SOLN 2ML OD (07:55)
[2017-06-24] MEDS: PHENYLEPHRINE 2.5% OPHTH SOL 2ML OD (07:55)
[2017-06-24] MEDS: CYCLOPENTOLATE 2% OPHTH SOLN 2ML BTL OD (07:55)
[2017-06-24] MEDS ORDERED: TIMOLOL MALEATE 0.5% OPHTH SOLN 5 ML As Ordered (09:26)
[2017-06-24] MEDS: MOXIFLOXACIN IN BSS 0.25MG/0.25ML INTRACAMERAL INJ (OR EYE ONLY)(J2280) As Ordered (09:27)
[2017-06-24] MEDS: LIDOCAINE 1% SDV 5 ML VIAL As Ordered (09:27)
[2017-06-24] MEDS: POVIDONE-IODINE 5% OPHTH PREP SOL 30ML As Ordered (09:27)
[2017-06-24] MEDS: TRIAMCINOLONE PRES FR 40 MG/ML 1ML(TRIESENCE)(OR EYE ONLY)(J3300 PER 1MG) As Ordered (09:28)
[2017-06-24] MEDS: HEALON DUET (HEALON 10MG/ML 0.55ML & HEALON ENDOCOAT 30MG/ML 0.85ML) As Ordered (09:29)
[2017-06-24] MEDS: BSS with VANC/TOB/EPI for EYE CASES IR (09:29)
[2017-06-24] MEDS: AcetaZOLAMIDE 500 MG ER CAP PO (09:55)
[2017-06-24] MEDS ORDERED: TRIMETHOBENZAMIDE 300 MG CAP PO (10:00)
[2017-06-24] MEDS ORDERED: KETOROLAC 0.5% OPHTH SOLN OD (10:00)
[2017-06-24] MEDS ORDERED: ONDANSETRON 4MG/2ML VIAL (J2405) IV (10:00)
== END 2017-06-24 10:15 | disposition home or self-care (01) ==
LOC: M SDC 07:12
DX: H26.9 Unspecified cataract (principal); I25.10 Atherosclerotic heart disease of native coronary artery without angina pectoris; I25.2 Old myocardial infarction; I10 Essential (primary) hypertension; K21.9 Gastro-esophageal reflux disease without esophagitis; M12.9 Arthropathy, unspecified; M54.2 Cervicalgia; M79.7 Fibromyalgia; J44.9 Chronic obstructive pulmonary disease, unspecified; J45.909 Unspecified asthma, uncomplicated; Z88.5 Allergy status to narcotic agent; Z91.048 Other nonmedicinal substance allergy status; Z79.899 Other long term (current) drug therapy; Z79.82 Long term (current) use of aspirin; Z79.01 Long term (current) use of anticoagulants; Z95.5 Presence of coronary angioplasty implant and graft; Z98.1 Arthrodesis status; Z72.0 Tobacco use; Z90.710 Acquired absence of both cervix and uterus
CPT/HCPCS: 66984

== ENCOUNTER → 2017-07-25 | Outpatient (CLI) | payer OTHER | LOC: M RAD 10:35 | DX: M25.571 Pain in right ankle and joints of right foot (principal) | CPT/HCPCS: 73564 ==

== ENCOUNTER → 2017-09-12 | Outpatient (CLI) | payer OTHER ==
[2017-09-12 10:48] LABS: BASO % 0.3 % (0.0-1.0); EOS # 0.3 10^3/uL (0.0-0.50); EOS % 2.8 % (0.0-3.0); HEMATOCRIT 41.2 % (36.0-47.0); HEMOGLOBIN 13.7 g/dl (12.0-15.5); IMMATURE GRANULOCYTE % 0.2 % (0-3.0); LYMPH # 2.5 10^3/uL (1.5-4.5); LYMPH % 27.7 % (24.0-44.0); MEAN CORPUSCULAR HEMOGLOBIN 30.5 pg (27.0-33.0); MEAN CORPUSCULAR HGB CONC 33.3 g/dl (32.0-36.5); MEAN CORPUSCULAR VOLUME 91.8 fl (80.0-96.0); MONO # 0.8 10^3/uL (0.0-0.8); MONO % 9.4 % (0.0-5.0); NEUTROPHILS # 5.3 10^3/uL (1.8-7.7); NEUTROPHILS % 59.6 % (36.0-66.0); PLATELET COUNT, AUTOMATED 335 10^3/uL (150-450); RED BLOOD COUNT 4.49 10^6/uL (4.00-5.40); RED CELL DISTRIBUTION WIDTH 14.6 % (11.5-14.5); WHITE BLOOD COUNT 8.9 10^3/uL (4.0-10.0)
[2017-09-12 11:37] LABS: ALBUMIN/GLOBULIN RATIO 1.29 (1.00-1.93); ALKALINE PHOSPHATASE 135 U/L (45-117); ALT/SGPT 26 U/L (12-78); ANION GAP 4 MEQ/L (8-16); AST/SGOT 18 U/L (7-37); BILIRUBIN,TOTAL 0.4 MG/DL (0.2-1.0); BLOOD UREA NITROGEN 19 MG/DL (7-18); CALCIUM LEVEL 9.1 MG/DL (8.5-10.1); CARBON DIOXIDE LEVEL 32 MEQ/L (21-32); CHLORIDE LEVEL 109 MEQ/L (98-107); CHOLESTEROL LEVEL 221 MG/DL (<200); CHOLESTEROL RISK RATIO 5.261 (<5); CREATININE FOR GFR 0.96 MG/DL (0.55-1.30); FREE T4 0.84 NG/DL (0.76-1.46); GLOMERULAR FILTRATION RATE > 60.0 (>51); GLUCOSE, FASTING 86 MG/DL (70-100); HDL CHOLESTEROL 42 MG/DL (>40); LDL CHOLESTEROL 124.4 MG/DL (<100); NON-HDL-C 179 MG/DL; POTASSIUM SERUM 4.2 MEQ/L (3.5-5.1); SODIUM LEVEL 145 MEQ/L (136-145); THYROID STIMULATING HORMONE 0.749 uIU/ML (0.358-3.740); TOTAL PROTEIN 7.1 GM/DL (6.4-8.2); TRIGLYCERIDES LEVEL 273 MG/DL (<150)
[2017-09-12 12:47] LABS: ESTIMATED AVERAGE GLUCOSE 108 MG/DL (60-110); HEMOGLOBIN A1c 5.4 %
[2017-09-14 09:28] LABS: TOTAL 25(OH) VITAMIN D 32.3 NG/ML (30.0-100.0)
== END ==
LOC: M LAB 10:34
DX: R74.9 Abnormal serum enzyme level, unspecified (principal); R73.9 Hyperglycemia, unspecified; E78.00 Pure hypercholesterolemia, unspecified; E55.9 Vitamin D deficiency, unspecified; Z79.899 Other long term (current) drug therapy
CPT/HCPCS: 84443

== ENCOUNTER → 2017-12-12 | Outpatient (CLI) | payer OTHER ==
[2017-12-12 09:42] LABS: BASO % 0.5 % (0.0-1.0); EOS # 0.3 10^3/uL (0.0-0.50); EOS % 3.7 % (0.0-3.0); HEMATOCRIT 40.6 % (36.0-47.0); HEMOGLOBIN 13.4 g/dl (12.0-15.5); IMMATURE GRANULOCYTE % 0.4 % (0-3.0); LYMPH # 2.5 10^3/uL (1.5-4.5); LYMPH % 33.1 % (24.0-44.0); MEAN CORPUSCULAR HEMOGLOBIN 30.6 pg (27.0-33.0); MEAN CORPUSCULAR VOLUME 92.7 fl (80.0-96.0); MONO # 0.7 10^3/uL (0.0-0.8); MONO % 9.7 % (0.0-5.0); NEUTROPHILS % 52.6 % (36.0-66.0); PLATELET COUNT, AUTOMATED 360 10^3/uL (150-450); RED BLOOD COUNT 4.38 10^6/uL (4.00-5.40); RED CELL DISTRIBUTION WIDTH 14.7 % (11.5-14.5); WHITE BLOOD COUNT 7.6 10^3/uL (4.0-10.0)
[2017-12-12 10:21] LABS: ALBUMIN 4.2 GM/DL (3.2-5.2); ALBUMIN/GLOBULIN RATIO 1.45 (1.00-1.93); ALKALINE PHOSPHATASE 124 U/L (45-117); ALT/SGPT 25 U/L (12-78); ANION GAP 7 MEQ/L (8-16); AST/SGOT 12 U/L (7-37); BILIRUBIN,TOTAL 0.4 MG/DL (0.2-1.0); BLOOD UREA NITROGEN 14 MG/DL (7-18); CALCIUM LEVEL 9.2 MG/DL (8.5-10.1); CARBON DIOXIDE LEVEL 29 MEQ/L (21-32); CHLORIDE LEVEL 111 MEQ/L (98-107); CHOLESTEROL LEVEL 218 MG/DL (<200); CHOLESTEROL RISK RATIO 4.638 (<5); CREATININE FOR GFR 1.05 MG/DL (0.55-1.30); FREE T4 0.89 NG/DL (0.76-1.46); GLOMERULAR FILTRATION RATE 57.1 (>51); GLUCOSE, FASTING 105 MG/DL (70-100); HDL CHOLESTEROL 47 MG/DL (>40); LDL CHOLESTEROL 132.8 MG/DL (<100); NON-HDL-C 171 MG/DL; SODIUM LEVEL 147 MEQ/L (136-145); TOTAL PROTEIN 7.1 GM/DL (6.4-8.2); TRIGLYCERIDES LEVEL 191 MG/DL (<150)
[2017-12-12 10:25] LABS: ESTIMATED AVERAGE GLUCOSE 111 MG/DL (60-110); HEMOGLOBIN A1c 5.5 %
[2017-12-14 06:51] LABS: TOTAL 25(OH) VITAMIN D 32.9 NG/ML (30.0-100.0)
== END ==
LOC: M LAB 08:49
DX: I97.3 Postprocedural hypertension (principal); E78.4 Other hyperlipidemia; E55.9 Vitamin D deficiency, unspecified; E73.9 Lactose intolerance, unspecified; E78.00 Pure hypercholesterolemia, unspecified; Z79.899 Other long term (current) drug therapy
CPT/HCPCS: 84443

== ENCOUNTER 2018-01-30 13:45 | Emergency (ER) | payer OTHER | END 2018-01-30 15:58 | disposition home or self-care (01) | LOC: M ED 13:45 | DX: S83.92XA Sprain of unspecified site of left knee, initial encounter (principal); S90.32XA Contusion of left foot, initial encounter; W01.0XXA Fall on same level from slipping, tripping and stumbling without subsequent striking against object, initial encounter; Y92.89 Other specified places as the place of occurrence of the external cause; I25.10 Atherosclerotic heart disease of native coronary artery without angina pectoris; Z95.5 Presence of coronary angioplasty implant and graft; Z79.899 Other long term (current) drug therapy; Z79.82 Long term (current) use of aspirin; Z79.02 Long term (current) use of antithrombotics/antiplatelets; Z88.5 Allergy status to narcotic agent; Z91.048 Other nonmedicinal substance allergy status; F17.210 Nicotine dependence, cigarettes, uncomplicated | CPT/HCPCS: 73590 ==

== ENCOUNTER → 2018-03-27 | Outpatient (CLI) | payer OTHER ==
[2018-03-27 10:36] LABS: HEMATOCRIT 40.6 % (36.0-47.0); HEMOGLOBIN 13.3 g/dl (12.0-15.5); MEAN CORPUSCULAR HEMOGLOBIN 30.8 pg (27.0-33.0); MEAN CORPUSCULAR HGB CONC 32.8 g/dl (32.0-36.5); PLATELET COUNT, AUTOMATED 320 10^3/uL (150-450); RED BLOOD COUNT 4.32 10^6/uL (4.00-5.40); RED CELL DISTRIBUTION WIDTH 14.2 % (11.5-14.5); WHITE BLOOD COUNT 8.1 10^3/uL (4.0-10.0)
[2018-03-27 11:11] LABS: ALBUMIN 3.7 GM/DL (3.2-5.2); ALBUMIN/GLOBULIN RATIO 1.28 (1.00-1.93); ALKALINE PHOSPHATASE 111 U/L (45-117); ALT/SGPT 25 U/L (12-78); ANION GAP 3 MEQ/L (8-16); AST/SGOT 18 U/L (7-37); BILIRUBIN,TOTAL 0.5 MG/DL (0.2-1.0); BLOOD UREA NITROGEN 10 MG/DL (7-18); CALCIUM LEVEL 8.7 MG/DL (8.5-10.1); CARBON DIOXIDE LEVEL 31 MEQ/L (21-32); CHLORIDE LEVEL 112 MEQ/L (98-107); CHOLESTEROL LEVEL 177 MG/DL (<200); CHOLESTEROL RISK RATIO 4.214 (<5); CREATININE FOR GFR 0.97 MG/DL (0.55-1.30); GLOMERULAR FILTRATION RATE > 60.0 (>51); GLUCOSE, FASTING 84 MG/DL (70-100); HDL CHOLESTEROL 42 MG/DL (>40); LDL CHOLESTEROL 87 MG/DL (<100); NON-HDL-C 135 MG/DL; POTASSIUM SERUM 4.6 MEQ/L (3.5-5.1); SODIUM LEVEL 146 MEQ/L (136-145); TOTAL PROTEIN 6.6 GM/DL (6.4-8.2); TRIGLYCERIDES LEVEL 239 MG/DL (<150)
== END ==
LOC: M LAB 10:18
DX: R53.83 Other fatigue (principal); E78.2 Mixed hyperlipidemia
CPT/HCPCS: 84443

== ENCOUNTER → 2018-07-16 | Outpatient (CLI) | payer OTHER ==
[~2018-07-16] MED LIST changes: +/ESOM40CA OR; +ACET500T15 PO; -ACETAMINOPHEN 325 MG TAB PO; +ALBU17IN INH; +ANOR1AER INH; +ARNU1INH INH; +ARNU1INH3 INH; +ASPI1TAB15 PO; +ASPI81TA83 OR; +CLAR10CA3 PO; +CLOP75TA2; +CRES20TA OR; +CYMB1CAP4 PO; +DOCU10CA PO; +DOK100TA PO; +DULO1CAP2 PO; +GEMF600T5 PO; +HYDR-3713 PO; +IBUP-1022 PO; +LIPI80TA PO; +LISI-542 PO; +LYRI150C OR; +MECL-68 PO; +MELA5TAB21 PO; +METO25TA4 PO; -MIDAZOLAM INJ 2 MG/2 ML VIAL (J2250) As Ordered; +NITR4TASL SL; +NORCOTAB PO; +PENN1SOL2 TD; -PHENYLEPHRINE HCL 10 % OPHTH. SOL 5ML OD; +PLAV1TAB2 PO; -PROPARACAINE 0.5% OPHTH SOL 15ML OD; +PROT1TAB2 PO; +RANI1TAB6 PO; +SING10TA32 PO; +TRAM50TA2 PO; +VITA100067 PO; +VITATAB73 PO; +ZANA4CAP OR; -fentaNYL 100 MCG/2 ML INJECTION (J3010) As Ordered; +metoprolol PO
[2018-07-16 10:16] LABS: BASO % 0.5 % (0.0-1.0); EOS # 0.2 10^3/uL (0.0-0.50); EOS % 2.5 % (0.0-3.0); HEMATOCRIT 39.6 % (36.0-47.0); HEMOGLOBIN 13.1 g/dl (12.0-15.5); LYMPH # 2.7 10^3/uL (1.5-4.5); LYMPH % 34.3 % (24.0-44.0); MEAN CORPUSCULAR HEMOGLOBIN 31.2 pg (27.0-33.0); MEAN CORPUSCULAR HGB CONC 33.1 g/dl (32.0-36.5); MEAN CORPUSCULAR VOLUME 94.3 fl (80.0-96.0); MONO # 0.6 10^3/uL (0.0-0.8); MONO % 7.8 % (0.0-5.0); NEUTROPHILS # 4.3 10^3/uL (1.8-7.7); NEUTROPHILS % 54.3 % (36.0-66.0); PLATELET COUNT, AUTOMATED 316 10^3/uL (150-450)
--- NOTE | 2018-07-16 10:38 | REP ---
Clinical: Right hand pain. Technique: AP, lateral, bilateral oblique views of the right hand. Findings: There is evidence for old fracture involving the fifth metacarpal bone. Clinical correlation is recommended to exclude a superimposed acute injury. Remainder examination is essentially normal for age. Impression: 1. Old healed fifth metacarpal bone fracture. Correlation is recommended to exclude superimposed injury. 2. Otherwise age appropriate right hand radiograph series. Electronically Signed by Ariel Cervantes MD 07/16/2018 10:28 A
[2018-07-16 10:43] LABS: ALBUMIN 4.3 GM/DL (3.2-5.2); ALT/SGPT 26 U/L (12-78); BILIRUBIN,TOTAL 0.5 MG/DL (0.2-1.0); BLOOD UREA NITROGEN 13 MG/DL (7-18); CALCIUM LEVEL 8.8 MG/DL (8.5-10.1); CARBON DIOXIDE LEVEL 28 MEQ/L (21-32); CHLORIDE LEVEL 110 MEQ/L (98-107); CREATININE FOR GFR 0.96 MG/DL (0.55-1.30); FOLATE > 24.0 NG/ML; GLOMERULAR FILTRATION RATE > 60.0 (>51); GLUCOSE, FASTING 83 MG/DL (70-100); POTASSIUM SERUM 4.8 MEQ/L (3.5-5.1); RHEUMATOID FACTOR QUANT < 10.0 IU/ML (<15.0); SODIUM LEVEL 144 MEQ/L (136-145); TOTAL PROTEIN 7.2 GM/DL (6.4-8.2); VITAMIN B12 LEVEL 518 PG/ML
[2018-07-16 11:15] LABS: HEMOGLOBIN A1c 5.5 %
[2018-07-16 13:13] LABS: ERYTHROCYTE SEDIMENTATION RATE 7 mm/hr (0-30)
[2018-07-19 14:10] LABS: VITAMIN E(ALPHA TOCOPHEROL) 19.8 mg/L (7.0-25.1); VITAMIN E(GAMMA TOCOPHEROL) 1.2 mg/L (0.5-5.5)
[2018-07-20 00:06] LABS: ANTI DOUBLE STRAND-DNA AB 4 IU/mL (0-9); ANTINUCLEAR ANTIBODIES DIRECT Negative (Negative); COPPER PLASMA 120 ug/dL (72-166); LEAD BLOOD ADULT 1 ug/dL (0-4); MERCURY LEVEL None Detected ug/L (0.0-14.9); SJOGREN'S ANTI SS-A <0.2 AI (0.0-0.9); SJOGREN'S ANTI SS-B <0.2 AI (0.0-0.9)
== END ==
LOC: M LAB 09:08
PROVIDERS: ATTEND Psychiatry & Neurology Neurology
DX: G62.9 Polyneuropathy, unspecified (principal); M79.641 Pain in right hand

== ENCOUNTER → 2018-11-05 | Outpatient (CLI) | payer OTHER ==
[~2018-11-05] MED LIST changes: -/ESOM40CA OR; +HYDR-3715 PO; +NEXI1CAP3 OR; -NORCOTAB PO
[2018-11-05 10:22] LABS: BASO % 0.2 % (0.0-1.0); EOS # 0.4 10^3/uL (0.0-0.50); EOS % 3.7 % (0.0-3.0); HEMATOCRIT 39.3 % (36.0-47.0); HEMOGLOBIN 13.2 g/dl (12.0-15.5); LYMPH # 2.8 10^3/uL (1.5-4.5); LYMPH % 28.9 % (24.0-44.0); MEAN CORPUSCULAR HEMOGLOBIN 30.9 pg (27.0-33.0); MEAN CORPUSCULAR HGB CONC 33.6 g/dl (32.0-36.5); MONO # 0.7 10^3/uL (0.0-0.8); MONO % 7.6 % (0.0-5.0); NEUTROPHILS # 5.6 10^3/uL (1.8-7.7); NEUTROPHILS % 59.3 % (36.0-66.0); PLATELET COUNT, AUTOMATED 393 10^3/uL (150-450); RED BLOOD COUNT 4.27 10^6/uL (4.00-5.40); WHITE BLOOD COUNT 9.5 10^3/uL (4.0-10.0)
[2018-11-05 10:46] LABS: ALBUMIN 3.9 GM/DL (3.2-5.2); ALT/SGPT 33 U/L (12-78); BILIRUBIN,TOTAL 0.2 MG/DL (0.2-1.0); BLOOD UREA NITROGEN 16 MG/DL (7-18); CALCIUM LEVEL 9.1 MG/DL (8.5-10.1); CARBON DIOXIDE LEVEL 29 MEQ/L (21-32); CHLORIDE LEVEL 111 MEQ/L (98-107); CHOLESTEROL LEVEL 170 MG/DL (<200); CHOLESTEROL RISK RATIO 4.146 (<5); CREATININE FOR GFR 0.95 MG/DL (0.55-1.30); FREE T4 0.85 NG/DL (0.76-1.46); GLOMERULAR FILTRATION RATE > 60.0 (>51); GLUCOSE, FASTING 101 MG/DL (70-100); HDL CHOLESTEROL 41 MG/DL (>40); LDL CHOLESTEROL 106 MG/DL (<100); NON-HDL-C 129 MG/DL; POTASSIUM SERUM 4.9 MEQ/L (3.5-5.1); SODIUM LEVEL 146 MEQ/L (136-145); TOTAL PROTEIN 7.1 GM/DL (6.4-8.2); TRIGLYCERIDES LEVEL 113 MG/DL (<150)
[2018-11-05 10:47] LABS: TOTAL 25(OH) VITAMIN D 38.9 NG/ML (30.0-100.0)
== END ==
LOC: M LAB 09:34
PROVIDERS: ATTEND Physician Assistant Medical
DX: R53.83 Other fatigue (principal); I10 Essential (primary) hypertension; E78.2 Mixed hyperlipidemia; E55.9 Vitamin D deficiency, unspecified

== ENCOUNTER → 2019-01-03 | Outpatient (CLI) | payer OTHER, MEDICAID ==
[~2019-01-03] MED LIST changes: -DULO1CAP2 PO; +DULO1CAP5 PO
--- NOTE | 2019-01-05 01:49 | ECWPNPC ---
PATIENT NAME: CLARK HA : 1960 GENDER: FEMALE VISIT DATE: 01/03/2019 DISCHARGE DATE: 01/03/19 1015 VISIT LOCKED DATE TIME: PHYSICIAN: ALIX PIÑA RESOURCE: ALIX PIÑA REASON FOR APPOINTMENT 1. RUE PAIN R/O REGIONAL SYMPATHETIC DYSTROPHY PREVIOUS PT OF LYNRADHA HISTORY OF PRESENT ILLNESS PAIN SCREENING: PATIENT HAS A COMPLAINT OF ACUTE OR CHRONIC PAIN :YES 58 YEAR OLD FEMALE THAT IS IN WITH COMPLAINTS OF RUE PAIN THAT DEVELOPED IN JUNE AND SHE DENIES TRAUMA PRIOR TO PAIN. SHE WAS REFERRED BY [facility] WHO ARE CONCERNED THIS MAY BE COMPLEX REGIONAL PAIN SYNDROME. SHE HAS HAD AN EMG STUDY THAT WAS PERFORMED AND CAME BACK NORMAL. SHE DID HAVE A RECENT WRIST X-RAY AND MRI OF THE CERVICAL SPINE. SHE RATES HER PAIN AT AN 7/10 CURRENTLY AND DESCRIBES IT SHARP, BURNING, AND TENDER. SHE FURTHER STATES HER ARM IS SENSITIVE TO TOUCH. FALL RISK SCREENING: SCREENING :NO FALLS REPORTED IN THE LAST YEAR CURRENT MEDICATIONS TAKING VENTOLIN HFA 108 (90 BASE) MCG/ACT AEROSOL SOLUTION 2 PUFFS NEEDED INHALATION EVERY 4 HRS TAKING ARNUITY ELLIPTA 100 MCG/ACT AEROSOL POWDER BREATH ACTIVATED 1 PUFF INHALATION ONCE A DAY TAKING ASPIR-81 81 MG TABLET DELAYED RELEASE 1 TABLET ORALLY ONCE A DAY TAKING ATORVASTATIN CALCIUM 80 MG TABLET 1 TABLET ORALLY ONCE A DAY TAKING PLAVIX 75 MG TABLET 1 TABLET ORALLY ONCE A DAY TAKING LORATADINE 10 MG TABLET 1 TABLET ORALLY ONCE A DAY TAKING SINGULAIR 10 MG TABLET 1 TABLET IN THE EVENING ORALLY ONCE A DAY TAKING PROTONIX 40 MG TABLET DELAYED RELEASE 1 TABLET ORALLY BID TAKING RANITIDINE HCL 150 MG CAPSULE 1 CAPSULE ORALLY TWICE A DAY TAKING ONE DAILY FOR WOMEN TABLET 2 TABS ORALLY DAILY TAKING CYMBALTA 30 MG CAPSULE DELAYED RELEASE PARTICLES 1 CAPSULE ORALLY DAILY TAKING EZETIMIBE 10 MG TABLET 1 TABLET ORALLY ONCE A DAY TAKING [place]AN POTASSIUM 50 MG TABLET 1 TABLET ORALLY ONCE A DAY TAKING STIOLTO RESPIMAT 2.5-2.5 MCG/ACT AEROSOL SOLUTION 2 PUFFS INHALATION ONCE A DAY TAKING IBUPROFEN 600 MG TABLET 1 TABLET WITH FOOD OR MILK NEEDED ORALLY THREE TIMES A DAY NOT-TAKING GEMFIBROZIL 600 MG TABLET 1 TABLET ORALLY TWICE A DAY NOT-TAKING METOPROLOL TARTRATE 25 MG TABLET 1 TABLET ORALLY TWICE A DAY NOT-TAKING MELATONIN 5 MG TABLET 1 TABLET AT BEDTIME NEEDED WITH FOOD ORALLY ONCE A DAY NOT-TAKING ANORO ELLIPTA UMECLIDINIUM 62.5 MCG AND VILANTEROL 25 MCG INHALATION POWDER 1 INHALATION ORAL ONCE DAILY NOT-TAKING TRAMADOL HCL 50 MG TABLET 1 TABLET NEEDED ORALLY DAILY PRN PAIN MDD1 NOT-TAKING MECLIZINE HCL 25 MG TABLET 1 TABLET NEEDED ORALLY TID PRN, NOTES: MONTHS AGO NOT-TAKING DOCUSATE SODIUM 100 MG CAPSULE 1 CAPSULE NEEDED ORALLY ONCE A DAY, NOTES: OVER 3 MONTHS AGO NOT-TAKING VALIUM 10 MG TABLET 1 TAB ORALLY 1 TAB 1HR PRE PROC. MDD1, NOTES: 10/25/15 AT 0830 NOT-TAKING VITAMIN D (CHOLECALCIFEROL) 1000 UNIT TABLET 1 TABLET ORALLY ONCE A DAY MEDICATION LIST REVIEWED AND RECONCILED WITH THE PATIENT PAST MEDICAL HISTORY HYPERTENSION [place] 2011 WITH STENT PLACEMENT GERD ENVIRONMENTAL ALLERGIES ARTHRITIS DDD RIGHT HAND AND WRIST PAIN ALLERGIES TAPE: SKIN IRRITATION - SIDE EFFECTS ENVIRONMENTAL: STUFFY NOSE, WATERY EYES - ALLERGY MORPHINE SULFATE: SEVERE ABDOMINAL CRAMPS - SIDE EFFECTS SURGICAL HISTORY RIGHT CARPAL TUNNEL RELEASE 1989 LEFT KNEE SURGERY 12/1977 CHOLECYSTECTOMY TUBAL LIGATION 1990 TOTAL HYSTERECTOMY NECK FUSION 2000 CARDIAC STENTS(5) 2010 X ,2011 RIGHT CATARACT REMOVAL WITH LENS INPLANT 06/24/17 D&C FAMILY HISTORY FATHER: , BRAIN AND LUNG CA, DIAGNOSED WITH HEART DISEASE, CANCER MOTHER: ALIVE, STAGE 4 KIDNEY DISEASE, OTHER, DIABETES, HYPERTENSION, HEART DISEASE SIBLINGS: BROTHER-HEART ATTACK SISTER-BREAST CA, HEART DISEASE, CANCER 1 SON(S) - HEALTHY. SOCIAL HISTORY GENERAL: TOBACCO USE ARE YOU A:CURRENT SMOKER ARE YOU INTERESTED IN QUITTING?NOT READY TO QUIT COUNSELED THE PATIENT ON SMOKING EFFECTS, EDUCATION [id number] HOW MANY CIGARETTES A DAY DO YOU SMOKE?6-10 HOW SOON AFTER YOU WAKE UP DO YOU SMOKE YOUR FIRST CIGARETTE?WITHIN 5 MIN HOW OFTEN DO YOU SMOKE CIGARETTES?EVERY DAY PATIENT COUNSELED ON THE DANGERS OF TOBACCO USE AND URGED TO QUIT:01/03/2019 EDUCATION LEVEL OF EDUCATION:FINISHED COLLEGE DIET: REGULAR. LANGUAGE LANGUAGES SPOKEN:SAMMARINESE DOMESTIC VIOLENCE DO YOU FEEL SAFE IN YOUR ENVIRONMENT?YES NEW PATIENT PAIN DIARY TODAY'S VISITNOTES PATIENT DESCRIBES PAIN :BURNING, HAVE IT ALL THE TIME, SHARP, TENDER FROM 0-10, WHAT LEVEL IS YOUR PAIN TODAY?7 RECREATIONAL DRUG USE DRUG USE?YES MARIJUANA HOW OFTEN AND HOW MUCH? OCCASSIONALLY FOR PAIN RELIEF EXERCISE: WALKS. LEARNING BARRIERS / SPECIAL NEEDS BARRIERS TO LEARNING?NO HEARING IMPAIRED?NO VISION IMPAIRED?YES :CORRECTIVE LENSES READING GLASSES COGNITIVELY IMPAIRED?NO READINESS TO LEARN?YES LEARNING PREFERENCES?NO LEARNING CAPABILITIES PRESENT?YES EMOTIONAL BARRIERS?NO SPECIAL DEVICES?NO ENTERTAINMENT REPORTER NEEDED?NO LUNG CANCER SCREENING SMOKING STATUS:CURRENT SMOKER PAIN CLINIC PFS, CLERGY, PUBLIC HEALTH REFERRALS HAS THE PATIENT BEEN EDUCATED REGARDING HIS/HER PLAN OF CARE?YES HAS THE PATIENT BEEN EDUCATED REGARDING PAIN, THE RISK FOR PAIN, THE IMPORTANCE OF EFFECTIVE PAIN MANAGEMENT, AND THE PAIN ASSESSMENT PROCESS?YES LATEX QUESTIONNAIRE LATEX ALLERGY : HAVE YOU EVER DEVELOPED ANY TYPE OF REACTION AFTER HANDLING LATEX PRODUCTS SUCH RUBBER GLOVES, CONDOMS, DIAPHRAGMS, BALLOONS, SOCKS, OR UNDERWEAR?NO LATEX ALLERGY : HAVE YOU EVER DEVELOPED ANY TYPE OF REACTION DURING OR AFTER DENTAL APPOINTMENT, VAGINAL/RECTAL EXAMINATION, SURGICAL PROCEDURE, OR ANY OTHER EXPOSURE?NO LATEX RISK : HAVE YOU EVER HAD ANY DIFFICULTY BREATHING OR HIVES AFTER EATING OR HANDLING ANY FRUITS, OR VEGETABLES; SUCH KIWI, BANANAS, STONE FRUITS, OR CHESTNUTSNO LATEX RISK : DO YOU HAVE A PREVIOUS PERSONAL HISTORY OF MORE THAN NINE SURGERIES, SPINA BIFIDA, OR REPEATED CATHERIZATIONS? YES - PLEASE INDICATE : > 9 SURGERIES LATEX RISK : ARE YOU FREQUENTLY EXPOSED TO LATEX PRODUCTS IN YOUR OCCUPATION?NO DATE ASKED : 01/03/2019 CAFFEINE CAFFEINE USE?YES HOW OFTEN AND HOW MUCH? 2 CUPS COFFEE/DAY ADVANCE DIRECTIVE ADVANCE DIRECTIVE DISCUSSED WITH PATIENT:YES 01/03/19 PT DOES NOT HAVE ANY ADVANCED DIRECTIVES AND SHE DECLINES INFORMATION ON HCP AT THIS TIME. AD SPIRITISM [id number] HINDU MARITAL STATUS: SINGLE. ALCOHOL SCREENING DID YOU HAVE A DRINK CONTAINING ALCOHOL IN THE PAST YEAR?YES HOW OFTEN DID YOU HAVE A DRINK CONTAINING ALCOHOL IN THE PAST YEAR?MONTHLY OR LESS (1 POINT) HOW MANY DRINKS DID YOU HAVE ON A TYPICAL DAY WHEN YOU WERE DRINKING IN THE PAST YEAR?3 OR 4 (1 POINT) HOW OFTEN DID YOU HAVE SIX OR MORE DRINKS ON ONE OCCASION IN THE PAST YEAR?LESS THAN MONTHLY (1 POINT) POINTS3 INTERPRETATIONPOSITIVE OCCUPATION: [employer]. HOSPITALIZATION/MAJOR DIAGNOSTIC PROCEDURE SURGERIES CHILDBIRTH REVIEW OF SYSTEMS REVIEWED BY: PROVIDER: GUY [place] . CONSTITUTIONAL: ANY CHANGE IN YOUR MEDICAL CONDITION? NO . CHILLS NO . FEVER NO . INFECTION: DO YOU HAVE NEW INFECTIONS? NO . DO YOU HAVE HISTORY OF MRSA? NO . MUSCULOSKELETAL: ANY NEW PATTERNS OF PAIN OR NUMBNESS? NO . SYTEMIC LUPUS NO . GASTROENTEROLOGY: ANY NEW CHANGE IN BOWEL CONTROL? NO . BARRETTS ESOPHAGUS NO . CIRRHOSIS NO . HEPATITIS NO . LIVER FAILURE NO . ACID REFLUX YES . UNEXPLAINED WEIGHT LOSS NO . GENITOURINARY: ANY NEW CHANGE IN BLADDER CONTROL? NO . IS THERE A CHANCE YOU COULD BE ? NO . HEMATOLOGY/LYMPH: DO YOU TAKE ANY BLOOD THINNERS? (FOR EXAMPLE- COUMADIN, PLAVIX, AGGRENOX, PLATEL, PRADAXA, OR XARELTO) YES, PLAVIX . WHEN WAS YOUR LAST DOSE? DATE: TIME:01/03/19 0600 . LOW PLATELET COUNT NO . SICKLE CELL DISEASE NO . VON WILLIEBRANDS NO . FACTOR V LEIDEN NO . THALLASEMIA NO . ANEMIA NO . EASY BRUISING YES,ON ANTICOAGULANTS . NEUROLOGY: HAVE YOU FALLEN IN THE PAST 12 MONTHS? NO . ANY NEW EXTREMITY NUMBNESS OR WEAKNESS? NO . HEAD INJURY YES 3-4 YEARS AGO-FELL AND HAD HEAD LACERATION . DEMENTIA NO . CEREBRAL PALSY NO . MULTIPLE SCLEROSIS NO . DIZZINESS NO . HEADACHE NO . STROKES NO . VERTIGO NO . CARDIOLOGY: DO YOU HAVE A PACEMAKER OR DEFIBRILLATOR? NO . ANGINA YES . HEART ATTACK YES . HEART SURGERY YES, STENTS PLACED X 5 . CONGESTIVE HEART FAILURE/FLUID OVERLOAD NO . CHEST PAIN PATIENT ADMITS BUT NONE IN THE PAST YEAR . HIGH BLOOD PRESSURE NO . IRREGULAR HEART BEAT NO . RESPIRATORY: HAVE YOU BEEN SICK IN THE PAST WEEK? NO . FEVER NO . FLU LIKE SYMPTOMS? NO . CPAP NO . BYPAP NO . ASTHMA NO . EMPHYSEMA NO . CHRONIC LUNG DISEASES NO . SHORTNESS OF BREATH ON EXERTION YES, SOMETIMES . COUGH NO . SNORING YES . INTEGUMENTARY: DO YOU HAVE ANY RASHES OR OPEN SORES? NO . ALLERGIC/IMMUNO: ARE YOU ALLERGIC TO IV DYE? NO . ANY NEW ALLERGIES? NO . PSYCHIATRIC: DO YOU HAVE THOUGHTS OF HURTING YOURSELF OR SOMEONE ELSE? NO . ARE YOU ABUSED, NEGLECTED, OR IN AN UNSAFE ENVIRONMENT? NO . ENDOCRINOLOGY: ARE YOU DIABETIC? NO . THYROID DISORDER NO . OTHER: DO YOU NEED ANY PRESCRIPTIONS? NO . IF YES, PLEASE LIST: ____ . ANY NEW PROBLEMS WITH YOUR MEDICATIONS? NO . WHEN DID YOU LAST EAT? ____ . WHEN DID YOU LAST DRINK? ____ . WHAT DID YOU LAST DRINK? ____ . NAME OF PERSON DRIVING YOU HOME? ____ . DO YOU HAVE ANY OTHER QUESTIONS OR CONCERNS YES, WHAT IS WRONG WITH MY WRIST/HAND? . VITAL SIGNS WT 175.8 LBS, HT 5'3/4", BMI 33.49 INDEX, BP 141/65 MM HG, HR 81 /MIN, RR 16 /MIN, TEMP 96.6 F, OXYGEN SAT % 99%, SAFE IN ENV? (Y/N) Y, NA INITIALS DC 08:52, REVIEWED BY: AD. EXAMINATION GENERAL EXAMINATION: GENERALNO ACUTE DISTRESS, WELL NOURISHED AND HYDRATED. PSYCHAPPROPRIATE MOOD AND AFFECT . LUNGS:CLEAR TO AUSCULTATION BILATERALLY, NO WHEEZES, RHONCHI, RALES. HEART:NO MURMURS, REGULAR RATE AND RHYTHM. ASSESSMENTS NEUROPATHY - G62.9 (PRIMARY) TREATMENT NEUROPATHY START GABAPENTIN CAPSULE, 100 MG, 1 CAPSULE, ORALLY, BID, 5 DAYS, 10 CAPSULE START GABAPENTIN CAPSULE, 300 MG, 1 CAPSULE, ORALLY, BID, 30 DAY(S), 60 CAPSULE CLINICAL NOTES: 58 YEAR OLD FEMALE IN FOR INITIAL PAIN CONSULT. SHE WAS REFERRED BY [facility] WHO WANTED TO RULE OUT COMPLEX REGIONAL PAIN SYNDROME. GIVEN PRESENTING SYMPTOMS AND RESULTS OF PHYSICAL EXAMINATION RECOMMENDED STARTING GABAPENTIN WITH FOLLOW UP IN 1 MONTH AND ATTAINING COPIES OF HER RIGHT WRIST X-RAY AND RECENT CERVICAL MRI. PATIENT HAS EXPRESSED UNDERSTANDING OF AND WAS IN AGREEMENT WITH TREATMENT PLAN. GIVEN TIME TO ASK QUESTIONS AND EXPRESS CONCERNS. PREVENTIVE MEDICINE PAIN CLINIC TEACHING: MEDICATIONS PT DECLINED PRINTED INFORMATION ON GABAPENTIN STATING SHE HAS TAKEN IN THE PAST AND IS FAMILIAR WITH IT. MEDICATION REVIEWED WITH PT AND SHE VERBALIZED UNDERSTANDING. AD. PROCEDURE CODES FA211 ESTABILISHED PATIENT [facility] CHARGE DISPOSITION & COMMUNICATION FOLLOW UP 4 WEEKS (REASON: MEDICATION ) ELECTRONICALLY SIGNED BY MARISEL CRENSHAW ON 01/04/2019 AT 08:49 AM EDT DISCLAIMER : THIS IS A VISIT SUMMARY EXTRACTED FROM THE [employer] CHART. IT IS NOT A COPY OF THE [employer] PROGRESS NOTE. DARREL
== END ==
LOC: M PAIN 09:00
PROVIDERS: ATTEND Family Medicine
DX: G62.9 Polyneuropathy, unspecified (principal); I10 Essential (primary) hypertension; I25.2 Old myocardial infarction; K21.9 Gastro-esophageal reflux disease without esophagitis; M19.90 Unspecified osteoarthritis, unspecified site; Z95.5 Presence of coronary angioplasty implant and graft; F17.210 Nicotine dependence, cigarettes, uncomplicated; Z88.5 Allergy status to narcotic agent; Z91.09 Other allergy status, other than to drugs and biological substances; Z79.01 Long term (current) use of anticoagulants; Z79.51 Long term (current) use of inhaled steroids; Z79.82 Long term (current) use of aspirin; Z79.899 Other long term (current) drug therapy

== ENCOUNTER → 2019-02-03 | Outpatient (CLI) | payer OTHER, MEDICAID ==
[~2019-02-03] MED LIST changes: -MECL-68 PO; +MECL1TAB31 PO; +RANI-397 PO; -RANI1TAB6 PO
--- NOTE | 2019-02-05 00:53 | ECWPNPC ---
PATIENT NAME: CLARK HA : 1960 GENDER: FEMALE VISIT DATE: 02/03/2019 DISCHARGE DATE: 02/03/19958 VISIT LOCKED DATE TIME: PHYSICIAN: ALIX PIÑA RESOURCE: ALIX PIÑA REASON FOR APPOINTMENT 1. MEDICATION HISTORY OF PRESENT ILLNESS HISTORY OF PRESENT ILLNESS: PAIN THE PATIENT DESCRIBES THE PAIN... 58-YEAR-OLD FEMALE IN FOR CHRONIC PAIN FOLLOW-UP. AT LAST VISIT SHE WAS STARTED ON GABAPENTIN 300 MG TWICE A DAY. SHE DOES ADMIT THAT SHE FEELS MEDICATIONS HAVE IMPROVED HER SYMPTOMS. SHE RATES HER PAIN CURRENTLY AT A 5 OUT OF 10. SHE DENIES SIDE EFFECTS FROM MEDICATION. FALL RISK SCREENING: SCREENING :NO FALLS REPORTED IN THE LAST YEAR CURRENT MEDICATIONS TAKING VENTOLIN HFA 108 (90 BASE) MCG/ACT AEROSOL SOLUTION 2 PUFFS NEEDED INHALATION EVERY 4 HRS TAKING ARNUITY ELLIPTA 100 MCG/ACT AEROSOL POWDER BREATH ACTIVATED 1 PUFF INHALATION ONCE A DAY TAKING ASPIR-81 81 MG TABLET DELAYED RELEASE 1 TABLET ORALLY ONCE A DAY TAKING ATORVASTATIN CALCIUM 80 MG TABLET 1 TABLET ORALLY ONCE A DAY TAKING PLAVIX 75 MG TABLET 1 TABLET ORALLY ONCE A DAY TAKING LORATADINE 10 MG TABLET 1 TABLET ORALLY ONCE A DAY TAKING SINGULAIR 10 MG TABLET 1 TABLET IN THE EVENING ORALLY ONCE A DAY TAKING PROTONIX 40 MG TABLET DELAYED RELEASE 1 TABLET ORALLY BID TAKING RANITIDINE HCL 150 MG CAPSULE 1 CAPSULE ORALLY TWICE A DAY TAKING ONE DAILY FOR WOMEN TABLET 2 TABS ORALLY DAILY TAKING CYMBALTA 30 MG CAPSULE DELAYED RELEASE PARTICLES 1 CAPSULE ORALLY DAILY TAKING EZETIMIBE 10 MG TABLET 1 TABLET ORALLY ONCE A DAY TAKING LOSARTAN POTASSIUM 50 MG TABLET 1 TABLET ORALLY ONCE A DAY TAKING STIOLTO RESPIMAT 2.5-2.5 MCG/ACT AEROSOL SOLUTION 2 PUFFS INHALATION ONCE A DAY TAKING IBUPROFEN 600 MG TABLET 1 TABLET WITH FOOD OR MILK NEEDED ORALLY PRN- TAKES VERY RARELY DUE TO PLAVIX TAKING GABAPENTIN 300 MG CAPSULE 1 CAPSULE ORALLY BID NOT-TAKING GABAPENTIN 100 MG CAPSULE 1 CAPSULE ORALLY BID, NOTES: TOOK 5 DAYS NOT-TAKING GEMFIBROZIL 600 MG TABLET 1 TABLET ORALLY TWICE A DAY NOT-TAKING METOPROLOL TARTRATE 25 MG TABLET 1 TABLET ORALLY TWICE A DAY NOT-TAKING MELATONIN 5 MG TABLET 1 TABLET AT BEDTIME NEEDED WITH FOOD ORALLY ONCE A DAY NOT-TAKING ANORO ELLIPTA UMECLIDINIUM 62.5 MCG AND VILANTEROL 25 MCG INHALATION POWDER 1 INHALATION ORAL ONCE DAILY NOT-TAKING TRAMADOL HCL 50 MG TABLET 1 TABLET NEEDED ORALLY DAILY PRN PAIN MDD1 NOT-TAKING MECLIZINE HCL 25 MG TABLET 1 TABLET NEEDED ORALLY TID PRN, NOTES: MONTHS AGO NOT-TAKING DOCUSATE SODIUM 100 MG CAPSULE 1 CAPSULE NEEDED ORALLY ONCE A DAY, NOTES: OVER 3 MONTHS AGO NOT-TAKING VALIUM 10 MG TABLET 1 TAB ORALLY 1 TAB 1HR PRE PROC. MDD1, NOTES: 10/25/15 AT 0830 NOT-TAKING VITAMIN D (CHOLECALCIFEROL) 1000 UNIT TABLET 1 TABLET ORALLY ONCE A DAY MEDICATION LIST REVIEWED AND RECONCILED WITH THE PATIENT PAST MEDICAL HISTORY HYPERTENSION OR 2011 WITH STENT PLACEMENT GERD ENVIRONMENTAL ALLERGIES ARTHRITIS DDD RIGHT HAND AND WRIST PAIN ALLERGIES TAPE: SKIN IRRITATION - SIDE EFFECTS ENVIRONMENTAL: STUFFY NOSE, WATERY EYES - ALLERGY MORPHINE SULFATE: SEVERE ABDOMINAL CRAMPS - SIDE EFFECTS SURGICAL HISTORY RIGHT CARPAL TUNNEL RELEASE 1989 LEFT KNEE SURGERY 12/1977 CHOLECYSTECTOMY TUBAL LIGATION 1990 TOTAL HYSTERECTOMY NECK FUSION 1999 CARDIAC STENTS(5) 2010 X 2,2011 RIGHT CATARACT REMOVAL WITH LENS INPLANT 06/24/17 D&C FAMILY HISTORY FATHER: , BRAIN AND LUNG CA, DIAGNOSED WITH UNSPECIFIED HEART DISEASE, OTHER MALIGNANT NEOPLASM OF UNSPECIFIED SITE MOTHER: ALIVE, STAGE 4 KIDNEY DISEASE, DIABETES, HYPERTENSION, UNSPECIFIED HEART DISEASE, OTHER SPECIFIED CONDITIONS INFLUENCING HEALTH STATUS SIBLINGS: BROTHER-HEART ATTACK SISTER-BREAST CA, UNSPECIFIED HEART DISEASE, OTHER MALIGNANT NEOPLASM OF UNSPECIFIED SITE 1 SON(S) - HEALTHY. SOCIAL HISTORY GENERAL: TOBACCO USE ARE YOU A:CURRENT SMOKER ARE YOU INTERESTED IN QUITTING?NOT READY TO QUIT COUNSELED THE PATIENT ON SMOKING EFFECTS, EDUCATION [id number]/19/2019 HOW MANY CIGARETTES A DAY DO YOU SMOKE?6-10 HOW SOON AFTER YOU WAKE UP DO YOU SMOKE YOUR FIRST CIGARETTE?WITHIN 5 MIN HOW OFTEN DO YOU SMOKE CIGARETTES?EVERY DAY PATIENT COUNSELED ON THE DANGERS OF TOBACCO USE AND URGED TO QUIT:02/03/2019 EDUCATION LEVEL OF EDUCATION:FINISHED COLLEGE DIET: REGULAR. LANGUAGE LANGUAGES SPOKEN:FAROESE DOMESTIC VIOLENCE DO YOU FEEL SAFE IN YOUR ENVIRONMENT?YES NEW PATIENT PAIN DIARY TODAY'S VISITNOTES PATIENT DESCRIBES PAIN :BURNING, HAVE IT ALL THE TIME, SHARP, TENDER FROM 0-10, WHAT LEVEL IS YOUR PAIN TODAY?7 RECREATIONAL DRUG USE DRUG USE?YES MARIJUANA HOW OFTEN AND HOW MUCH? OCCASSIONALLY FOR PAIN RELIEF EXERCISE: WALKS. LEARNING BARRIERS / SPECIAL NEEDS BARRIERS TO LEARNING?NO HEARING IMPAIRED?NO VISION IMPAIRED?YES COGNITIVELY IMPAIRED?NO :CORRECTIVE LENSES READING GLASSES READINESS TO LEARN?YES LEARNING PREFERENCES?NO LEARNING CAPABILITIES PRESENT?YES EMOTIONAL BARRIERS?NO SPECIAL DEVICES?NO POTLINE MONITOR NEEDED?NO LUNG CANCER SCREENING SMOKING STATUS:CURRENT SMOKER PAIN CLINIC PFS, CLERGY, PUBLIC HEALTH REFERRALS HAS THE PATIENT BEEN EDUCATED REGARDING HIS/HER PLAN OF CARE?YES HAS THE PATIENT BEEN EDUCATED REGARDING PAIN, THE RISK FOR PAIN, THE IMPORTANCE OF EFFECTIVE PAIN MANAGEMENT, AND THE PAIN ASSESSMENT PROCESS?YES LATEX QUESTIONNAIRE LATEX ALLERGY : HAVE YOU EVER DEVELOPED ANY TYPE OF REACTION AFTER HANDLING LATEX PRODUCTS SUCH RUBBER GLOVES, CONDOMS, DIAPHRAGMS, BALLOONS, SOCKS, OR UNDERWEAR?NO LATEX ALLERGY : HAVE YOU EVER DEVELOPED ANY TYPE OF REACTION DURING OR AFTER DENTAL APPOINTMENT, VAGINAL/RECTAL EXAMINATION, SURGICAL PROCEDURE, OR ANY OTHER EXPOSURE?NO DATE ASKED : 01/03/2019 LATEX RISK : HAVE YOU EVER HAD ANY DIFFICULTY BREATHING OR HIVES AFTER EATING OR HANDLING ANY FRUITS, OR VEGETABLES; SUCH KIWI, BANANAS, STONE FRUITS, OR CHESTNUTSNO LATEX RISK : DO YOU HAVE A PREVIOUS PERSONAL HISTORY OF MORE THAN NINE SURGERIES, SPINA BIFIDA, OR REPEATED CATHERIZATIONS? YES - PLEASE INDICATE : > 9 SURGERIES LATEX RISK : ARE YOU FREQUENTLY EXPOSED TO LATEX PRODUCTS IN YOUR OCCUPATION?NO CAFFEINE CAFFEINE USE?YES HOW OFTEN AND HOW MUCH? 2 CUPS COFFEE/DAY ADVANCE DIRECTIVE ADVANCE DIRECTIVE DISCUSSED WITH PATIENT:YES 01/03/19 PT DOES NOT HAVE ANY ADVANCED DIRECTIVES AND SHE DECLINES INFORMATION ON HCP AT THIS TIME. AD HOLINESS [id number] HOAHAOISM MARITAL STATUS: SINGLE. ALCOHOL SCREENING DID YOU HAVE A DRINK CONTAINING ALCOHOL IN THE PAST YEAR?YES HOW OFTEN DID YOU HAVE SIX OR MORE DRINKS ON ONE OCCASION IN THE PAST YEAR?LESS THAN MONTHLY (1 POINT) HOW MANY DRINKS DID YOU HAVE ON A TYPICAL DAY WHEN YOU WERE DRINKING IN THE PAST YEAR?3 OR 4 (1 POINT) HOW OFTEN DID YOU HAVE A DRINK CONTAINING ALCOHOL IN THE PAST YEAR?MONTHLY OR LESS (1 POINT) POINTS3 INTERPRETATIONPOSITIVE OCCUPATION: [employer]. REVIEWED WITH PT 02/03/19 0945 NLJ. HOSPITALIZATION/MAJOR DIAGNOSTIC PROCEDURE SURGERIES CHILDBIRTH REVIEW OF SYSTEMS REVIEWED BY: PROVIDER: GUY CONTIC . CONSTITUTIONAL: ANY CHANGE IN YOUR MEDICAL CONDITION? NO . CHILLS NO . FEVER NO . INFECTION: DO YOU HAVE NEW INFECTIONS? NO . DO YOU HAVE HISTORY OF MRSA? NO . MUSCULOSKELETAL: ANY NEW PATTERNS OF PAIN OR NUMBNESS? NO- STATES TENDERNESS IN HER WRIST, AND BURNING IN HER THUMB AREA, STATES THE PAIN HAS DECREASED SOME, STATES SHE DOES ALMOST ALWAYS GET "LIKE A BURNING, STABBING, SHOOTING PAIN IN HER THUMB", STATES IT IS BETTER NOW . GASTROENTEROLOGY: ANY NEW CHANGE IN BOWEL CONTROL? NO . GENITOURINARY: ANY NEW CHANGE IN BLADDER CONTROL? NO . IS THERE A CHANCE YOU COULD BE ? NO . HEMATOLOGY/LYMPH: DO YOU TAKE ANY BLOOD THINNERS? (FOR EXAMPLE- COUMADIN, PLAVIX, AGGRENOX, PLATEL, PRADAXA, OR XARELTO) YES- PLAVIX . WHEN WAS YOUR LAST DOSE? DATE:02/03/19 TIME: 0700 . NEUROLOGY: HAVE YOU FALLEN IN THE PAST 12 MONTHS? NO . ANY NEW EXTREMITY NUMBNESS OR WEAKNESS? NO . CARDIOLOGY: DO YOU HAVE A PACEMAKER OR DEFIBRILLATOR? NO . RESPIRATORY: HAVE YOU BEEN SICK IN THE PAST WEEK? NO . FEVER NO . FLU LIKE SYMPTOMS? NO . COUGH NO . INTEGUMENTARY: DO YOU HAVE ANY RASHES OR OPEN SORES? NO . ALLERGIC/IMMUNO: ARE YOU ALLERGIC TO IV DYE? NO . ANY NEW ALLERGIES? NO . PSYCHIATRIC: DO YOU HAVE THOUGHTS OF HURTING YOURSELF OR SOMEONE ELSE? NO . ARE YOU ABUSED, NEGLECTED, OR IN AN UNSAFE ENVIRONMENT? NO . ENDOCRINOLOGY: ARE YOU DIABETIC? NO . OTHER: DO YOU NEED ANY PRESCRIPTIONS? YES . IF YES, PLEASE LIST: ____GABAPENTIN . ANY NEW PROBLEMS WITH YOUR MEDICATIONS? NO . WHEN DID YOU LAST EAT? ____ . WHEN DID YOU LAST DRINK? ____ . WHAT DID YOU LAST DRINK? ____ . NAME OF PERSON DRIVING YOU HOME? ____ . DO YOU HAVE ANY OTHER QUESTIONS OR CONCERNS YES- WOULD LIKE TO KNOW WHAT CAN BE DONE TO HELP WITH HER PAIN, STATES SHE WANTS TO KNOW WHAT IS ACTULLAY WRONG WITH HER HAND/WRIST . VITAL SIGNS WT 181.2 LBS, HT 5'3/4", BMI 34.52 INDEX, BP 143/68 MM HG, HR 69 /MIN, RR 18 /MIN, TEMP 97.4 F, OXYGEN SAT % 99%, SAFE IN ENV? (Y/N) YES, NA INITIALS ND 09:32, REVIEWED BY: JOSÉ. EXAMINATION GENERAL EXAMINATION: GENERALNO ACUTE DISTRESS, WELL NOURISHED AND HYDRATED. PSYCHAPPROPRIATE MOOD AND AFFECT . LUNGS:CLEAR TO AUSCULTATION BILATERALLY, NO WHEEZES, RHONCHI, RALES. HEART:NO MURMURS, REGULAR RATE AND RHYTHM. ASSESSMENTS NEUROPATHY - G62.9 (PRIMARY) TREATMENT NEUROPATHY INCREASE GABAPENTIN CAPSULE, 300 MG, 1 CAPSULE, ORALLY, TID, 30 DAY(S), 90 CAPSULE CLINICAL NOTES: 58-YEAR-OLD FEMALE IN FOR CHRONIC PAIN FOLLOW-UP. GIVEN PRESENTING SYMPTOMS AND RESULTS OF PHYSICAL EXAMINATION RECOMMENDED INCREASING GABAPENTIN TO 300 MG 3 TIMES A DAY. FURTHER RECOMMENDED FOLLOW-UP IN ONE MONTH TO DETERMINE EFFICACY OF TREATMENT. DISCUSSED USE OF WRIST SPLINT WITH PATIENT IT MAY POTENTIALLY HELP ALLEVIATE SOME OF HER SYMPTOMS. PATIENT HAS EXPRESSED UNDERSTANDING OF AND WAS IN AGREEMENT WITH TREATMENT PLAN. GIVEN TIME TO ASK QUESTIONS AND EXPRESS CONCERNS. PROCEDURE CODES FA211 ESTABILISHED PATIENT [facility] CHARGE DISPOSITION & COMMUNICATION FOLLOW UP 4 WEEKS (REASON: MEDICATION INCREASE) ELECTRONICALLY SIGNED BY MARISEL CRENSHAW ON 02/04/2019 AT 11:57 AM EDT DISCLAIMER : THIS IS A VISIT SUMMARY EXTRACTED FROM THE [employer] CHART. IT IS NOT A COPY OF THE [employer] PROGRESS NOTE. DARREL
== END ==
LOC: M PAIN 09:15
PROVIDERS: ATTEND Family Medicine
DX: G62.9 Polyneuropathy, unspecified (principal); G89.29 Other chronic pain; I10 Essential (primary) hypertension; I25.2 Old myocardial infarction; K21.9 Gastro-esophageal reflux disease without esophagitis; M19.90 Unspecified osteoarthritis, unspecified site; F17.210 Nicotine dependence, cigarettes, uncomplicated; Z88.5 Allergy status to narcotic agent; Z91.09 Other allergy status, other than to drugs and biological substances; Z95.5 Presence of coronary angioplasty implant and graft; Z79.01 Long term (current) use of anticoagulants; Z79.51 Long term (current) use of inhaled steroids; Z79.82 Long term (current) use of aspirin; Z79.899 Other long term (current) drug therapy

== ENCOUNTER → 2019-03-07 | Outpatient (CLI) | payer OTHER, MEDICAID ==
[~2019-03-07] MED LIST changes: +MECL-68 PO; -MECL1TAB31 PO; +RANI-356 PO; -RANI-397 PO
--- NOTE | 2019-03-09 01:02 | ECWPNPC ---
PATIENT NAME: CLARK HA : 1960 GENDER: FEMALE VISIT DATE: 03/07/2019 DISCHARGE DATE: 03/07/19 1036 VISIT LOCKED DATE TIME: PHYSICIAN: ALIX PIÑA RESOURCE: ALIX PIÑA REASON FOR APPOINTMENT 1. MEDS/HAND HISTORY OF PRESENT ILLNESS HISTORY OF PRESENT ILLNESS: PAIN THE PATIENT DESCRIBES THE PAIN... 58-YEAR-OLD FEMALE IN FOR CHRONIC PAIN FOLLOW-UP. AT LAST CLINIC VISIT HER GABAPENTIN WAS INCREASED AND SHE FEELS THIS MEDICATION INCREASE WAS HELPFUL. SHE RATES HER PAIN CURRENTLY AT A 7 OUT OF 10 AND DESCRIBES IT BURNING, AND TINGLING. FALL RISK SCREENING: SCREENING :NO FALLS REPORTED IN THE LAST YEAR CURRENT MEDICATIONS TAKING VENTOLIN HFA 108 (90 BASE) MCG/ACT AEROSOL SOLUTION 2 PUFFS NEEDED INHALATION EVERY 4 HRS TAKING ARNUITY ELLIPTA 100 MCG/ACT AEROSOL POWDER BREATH ACTIVATED 1 PUFF INHALATION ONCE A DAY TAKING ASPIR-81 81 MG TABLET DELAYED RELEASE 1 TABLET ORALLY ONCE A DAY TAKING ATORVASTATIN CALCIUM 80 MG TABLET 1 TABLET ORALLY ONCE A DAY TAKING PLAVIX 75 MG TABLET 1 TABLET ORALLY ONCE A DAY TAKING LORATADINE 10 MG TABLET 1 TABLET ORALLY ONCE A DAY TAKING SINGULAIR 10 MG TABLET 1 TABLET IN THE EVENING ORALLY ONCE A DAY TAKING PROTONIX 40 MG TABLET DELAYED RELEASE 1 TABLET ORALLY BID TAKING RANITIDINE HCL 150 MG CAPSULE 1 CAPSULE ORALLY TWICE A DAY TAKING ONE DAILY FOR WOMEN TABLET 2 TABS ORALLY DAILY TAKING CYMBALTA 30 MG CAPSULE DELAYED RELEASE PARTICLES 1 CAPSULE ORALLY DAILY TAKING EZETIMIBE 10 MG TABLET 1 TABLET ORALLY ONCE A DAY TAKING LOSARTAN POTASSIUM 50 MG TABLET 1 TABLET ORALLY ONCE A DAY TAKING STIOLTO RESPIMAT 2.5-2.5 MCG/ACT AEROSOL SOLUTION 2 PUFFS INHALATION ONCE A DAY TAKING IBUPROFEN 600 MG TABLET 1 TABLET WITH FOOD OR MILK NEEDED ORALLY PRN- TAKES VERY RARELY DUE TO PLAVIX TAKING GABAPENTIN 300 MG CAPSULE 1 CAPSULE ORALLY TID NOT-TAKING GABAPENTIN 100 MG CAPSULE 1 CAPSULE ORALLY BID, NOTES: TOOK 5 DAYS NOT-TAKING GEMFIBROZIL 600 MG TABLET 1 TABLET ORALLY TWICE A DAY NOT-TAKING METOPROLOL TARTRATE 25 MG TABLET 1 TABLET ORALLY TWICE A DAY NOT-TAKING MELATONIN 5 MG TABLET 1 TABLET AT BEDTIME NEEDED WITH FOOD ORALLY ONCE A DAY NOT-TAKING ANORO ELLIPTA UMECLIDINIUM 62.5 MCG AND VILANTEROL 25 MCG INHALATION POWDER 1 INHALATION ORAL ONCE DAILY NOT-TAKING TRAMADOL HCL 50 MG TABLET 1 TABLET NEEDED ORALLY DAILY PRN PAIN MDD1 NOT-TAKING MECLIZINE HCL 25 MG TABLET 1 TABLET NEEDED ORALLY TID PRN, NOTES: MONTHS AGO NOT-TAKING DOCUSATE SODIUM 100 MG CAPSULE 1 CAPSULE NEEDED ORALLY ONCE A DAY, NOTES: OVER 3 MONTHS AGO NOT-TAKING VALIUM 10 MG TABLET 1 TAB ORALLY 1 TAB 1HR PRE PROC. MDD1, NOTES: 10/25/15 AT 0830 NOT-TAKING VITAMIN D (CHOLECALCIFEROL) 1000 UNIT TABLET 1 TABLET ORALLY ONCE A DAY MEDICATION LIST REVIEWED AND RECONCILED WITH THE PATIENT PAST MEDICAL HISTORY HYPERTENSION [place] 2011 WITH STENT PLACEMENT GERD ENVIRONMENTAL ALLERGIES ARTHRITIS DDD RIGHT HAND AND WRIST PAIN ALLERGIES TAPE: SKIN IRRITATION - SIDE EFFECTS ENVIRONMENTAL: STUFFY NOSE, WATERY EYES - ALLERGY MORPHINE SULFATE: SEVERE ABDOMINAL CRAMPS - SIDE EFFECTS SURGICAL HISTORY RIGHT CARPAL TUNNEL RELEASE 1989 LEFT KNEE SURGERY 12/1977 CHOLECYSTECTOMY TUBAL LIGATION 1990 TOTAL HYSTERECTOMY NECK FUSION 1999 CARDIAC STENTS(5) 2010 X 2,2011 RIGHT CATARACT REMOVAL WITH LENS INPLANT 06/24/17 D&C FAMILY HISTORY FATHER: , BRAIN AND LUNG CA, DIAGNOSED WITH UNSPECIFIED HEART DISEASE, OTHER MALIGNANT NEOPLASM OF UNSPECIFIED SITE MOTHER: ALIVE, STAGE 4 KIDNEY DISEASE, DIABETES, HYPERTENSION, UNSPECIFIED HEART DISEASE, OTHER SPECIFIED CONDITIONS INFLUENCING HEALTH STATUS SIBLINGS: BROTHER-HEART ATTACK SISTER-BREAST CA, UNSPECIFIED HEART DISEASE, OTHER MALIGNANT NEOPLASM OF UNSPECIFIED SITE 1 SON(S) - HEALTHY. SOCIAL HISTORY GENERAL: TOBACCO USE ARE YOU A:CURRENT SMOKER ARE YOU INTERESTED IN QUITTING?NOT READY TO QUIT COUNSELED THE PATIENT ON SMOKING EFFECTS, EDUCATION [id number]/21/2019 HOW MANY CIGARETTES A DAY DO YOU SMOKE?6-10 HOW SOON AFTER YOU WAKE UP DO YOU SMOKE YOUR FIRST CIGARETTE?WITHIN 5 MIN HOW OFTEN DO YOU SMOKE CIGARETTES?EVERY DAY PATIENT COUNSELED ON THE DANGERS OF TOBACCO USE AND URGED TO QUIT:02/03/2019 EDUCATION LEVEL OF EDUCATION:FINISHED COLLEGE DIET: REGULAR. LANGUAGE LANGUAGES SPOKEN:MALAWIAN DOMESTIC VIOLENCE DO YOU FEEL SAFE IN YOUR ENVIRONMENT?YES NEW PATIENT PAIN DIARY TODAY'S VISITNOTES PATIENT DESCRIBES PAIN :BURNING, HAVE IT ALL THE TIME, SHARP, TENDER FROM 0-10, WHAT LEVEL IS YOUR PAIN TODAY?7 RECREATIONAL DRUG USE DRUG USE?YES MARIJUANA HOW OFTEN AND HOW MUCH? OCCASSIONALLY FOR PAIN RELIEF EXERCISE: WALKS. 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?NO LUNG CANCER SCREENING SMOKING STATUS:CURRENT SMOKER PAIN CLINIC PFS, CLERGY, PUBLIC HEALTH REFERRALS HAS THE PATIENT BEEN EDUCATED REGARDING HIS/HER PLAN OF CARE?YES HAS THE PATIENT BEEN EDUCATED REGARDING PAIN, THE RISK FOR PAIN, THE IMPORTANCE OF EFFECTIVE PAIN MANAGEMENT, AND THE PAIN ASSESSMENT PROCESS?YES LATEX QUESTIONNAIRE LATEX ALLERGY : HAVE YOU EVER DEVELOPED ANY TYPE OF REACTION AFTER HANDLING LATEX PRODUCTS SUCH RUBBER GLOVES, CONDOMS, DIAPHRAGMS, BALLOONS, SOCKS, OR UNDERWEAR?NO LATEX ALLERGY : HAVE YOU EVER DEVELOPED ANY TYPE OF REACTION DURING OR AFTER DENTAL APPOINTMENT, VAGINAL/RECTAL EXAMINATION, SURGICAL PROCEDURE, OR ANY OTHER EXPOSURE?NO DATE ASKED : 01/03/2019 LATEX RISK : HAVE YOU EVER HAD ANY DIFFICULTY BREATHING OR HIVES AFTER EATING OR HANDLING ANY FRUITS, OR VEGETABLES; SUCH KIWI, BANANAS, STONE FRUITS, OR CHESTNUTSNO LATEX RISK : DO YOU HAVE A PREVIOUS PERSONAL HISTORY OF MORE THAN NINE SURGERIES, SPINA BIFIDA, OR REPEATED CATHERIZATIONS? YES - PLEASE INDICATE : > 9 SURGERIES LATEX RISK : ARE YOU FREQUENTLY EXPOSED TO LATEX PRODUCTS IN YOUR OCCUPATION?NO CAFFEINE CAFFEINE USE?YES HOW OFTEN AND HOW MUCH? 2 CUPS COFFEE/DAY ADVANCE DIRECTIVE ADVANCE DIRECTIVE DISCUSSED WITH PATIENT:YES PT DOES NOT HAVE ANY ADVANCED DIRECTIVES AND SHE DECLINES INFORMATION ON HCP AT THIS TIME. JAINISM [id number] BAPTISM MARITAL STATUS: SINGLE. ALCOHOL SCREENING DID YOU HAVE A DRINK CONTAINING ALCOHOL IN THE PAST YEAR?YES HOW OFTEN DID YOU HAVE SIX OR MORE DRINKS ON ONE OCCASION IN THE PAST YEAR?LESS THAN MONTHLY (1 POINT) HOW MANY DRINKS DID YOU HAVE ON A TYPICAL DAY WHEN YOU WERE DRINKING IN THE PAST YEAR?3 OR 4 (1 POINT) HOW OFTEN DID YOU HAVE A DRINK CONTAINING ALCOHOL IN THE PAST YEAR?MONTHLY OR LESS (1 POINT) POINTS3 INTERPRETATIONPOSITIVE OCCUPATION: [employer]. REVIEWED WITH PT 02/03/19 0932 NLJ. HOSPITALIZATION/MAJOR DIAGNOSTIC PROCEDURE SURGERIES CHILDBIRTH REVIEW OF SYSTEMS REVIEWED BY: PROVIDER: GUY [place] . CONSTITUTIONAL: ANY CHANGE IN YOUR MEDICAL CONDITION? NO . CHILLS NO . FEVER NO . INFECTION: DO YOU HAVE NEW INFECTIONS? NO . DO YOU HAVE HISTORY OF MRSA? NO . MUSCULOSKELETAL: ANY NEW PATTERNS OF PAIN OR NUMBNESS? YES, LAST NIGHT RIGHT HAND DIGITS TINGLING . GASTROENTEROLOGY: ANY NEW CHANGE IN BOWEL CONTROL? NO . GENITOURINARY: ANY NEW CHANGE IN BLADDER CONTROL? NO . IS THERE A CHANCE YOU COULD BE ? NO . HEMATOLOGY/LYMPH: DO YOU TAKE ANY BLOOD THINNERS? (FOR EXAMPLE- COUMADIN, PLAVIX, AGGRENOX, PLATEL, PRADAXA, OR XARELTO) YES, PLAVIX . WHEN WAS YOUR LAST DOSE? DATE: TIME: . NEUROLOGY: HAVE YOU FALLEN IN THE PAST 12 MONTHS? NO . ANY NEW EXTREMITY NUMBNESS OR WEAKNESS? NO . CARDIOLOGY: DO YOU HAVE A PACEMAKER OR DEFIBRILLATOR? NO . RESPIRATORY: HAVE YOU BEEN SICK IN THE PAST WEEK? YES, RECOVERED FROM THE FLU . FEVER NO . FLU LIKE SYMPTOMS? NO . COUGH NO . INTEGUMENTARY: DO YOU HAVE ANY RASHES OR OPEN SORES? NO . ALLERGIC/IMMUNO: ARE YOU ALLERGIC TO IV DYE? NO . ANY NEW ALLERGIES? NO . PSYCHIATRIC: DO YOU HAVE THOUGHTS OF HURTING YOURSELF OR SOMEONE ELSE? NO . ARE YOU ABUSED, NEGLECTED, OR IN AN UNSAFE ENVIRONMENT? NO . ENDOCRINOLOGY: ARE YOU DIABETIC? NO . OTHER: DO YOU NEED ANY PRESCRIPTIONS? NO . IF YES, PLEASE LIST: ____ . ANY NEW PROBLEMS WITH YOUR MEDICATIONS? NO . WHEN DID YOU LAST EAT? ____ . WHEN DID YOU LAST DRINK? ____ . WHAT DID YOU LAST DRINK? ____ . NAME OF PERSON DRIVING YOU HOME? ____ . DO YOU HAVE ANY OTHER QUESTIONS OR CONCERNS NO . VITAL SIGNS WT 177.8 LBS, HT 5'3/4", BMI 33.87 INDEX, BP 140/62 MM HG, HR 73 /MIN, RR 18 /MIN, TEMP 97.3 F, OXYGEN SAT % 98%, NA INITIALS SC 09:53, REVIEWED BY: EM. EXAMINATION GENERAL EXAMINATION: GENERALNO ACUTE DISTRESS, WELL NOURISHED AND HYDRATED. PSYCHAPPROPRIATE MOOD AND AFFECT . LUNGS:CLEAR TO AUSCULTATION BILATERALLY, NO WHEEZES, RHONCHI, RALES. HEART:NO MURMURS, REGULAR RATE AND RHYTHM. 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 CLINICAL NOTES: 58-YEAR-OLD FEMALE IN FOR CHRONIC PAIN FOLLOW-UP. SHE DID HAVE SOME QUESTIONS REGARDING ANTACIDS AND USE OF GABAPENTIN AND EDUCATIONAL MATERIAL WAS REVIEWED ON GABAPENTIN. GIVEN PRESENTING SYMPTOMS AND RESULTS PHYSICAL EXAMINATION RECOMMENDED INCREASING CYMBALTA TO 60 MG DAILY WITH FOLLOW-UP IN 2 MONTHS. PATIENT HAS EXPRESSED UNDERSTANDING OF AND WAS IN AGREEMENT WITH TREATMENT PLAN. GIVEN TIME TO ASK QUESTIONS AND EXPRESS CONCERNS. PROCEDURE CODES FA211 ESTABILISHED PATIENT [facility] CHARGE DISPOSITION & COMMUNICATION FOLLOW UP 2 MONTHS (REASON: MEDICATION ADJUSTMENT) ELECTRONICALLY SIGNED BY MARISEL CRENSHAW ON 03/08/2019 AT 08:57 AM EDT DISCLAIMER : THIS IS A VISIT SUMMARY EXTRACTED FROM THE [employer] CHART. IT IS NOT A COPY OF THE [employer] PROGRESS NOTE. MTDAnnia
== END ==
LOC: M PAIN 09:45
PROVIDERS: ATTEND Family Medicine
DX: M43.06 Spondylolysis, lumbar region (principal); G62.9 Polyneuropathy, unspecified; G89.29 Other chronic pain; I10 Essential (primary) hypertension; I25.2 Old myocardial infarction; K21.9 Gastro-esophageal reflux disease without esophagitis; M19.90 Unspecified osteoarthritis, unspecified site; F17.210 Nicotine dependence, cigarettes, uncomplicated; Z88.5 Allergy status to narcotic agent; Z91.09 Other allergy status, other than to drugs and biological substances; Z79.01 Long term (current) use of anticoagulants; Z79.51 Long term (current) use of inhaled steroids; Z79.82 Long term (current) use of aspirin; Z79.899 Other long term (current) drug therapy

== ENCOUNTER → 2019-05-21 | Outpatient (REF) | payer OTHER ==
[~2019-05-21] MED LIST changes: -RANI-356 PO; +RANI-397 PO
== END ==
LOC: M LAB REF 13:47
PROVIDERS: ATTEND Physician Assistant
DX: R50.9 Fever, unspecified (principal); R05 Cough

== ENCOUNTER 2020-08-06 12:02 | Emergency (ER) | payer MEDICAID, OTHER ==
[~2020-08-06] VITALS: Ht 152.4 cm; Wt 81.4 kg
[~2020-08-06 12:02] MED LIST changes: +ASPI-546 PO; -ASPI1TAB15 PO; -DOK100TA PO; +DOK100TA2 PO; -LISI-542 PO; +LISI-898 PO; -MECL-68 PO; +MECL1TAB31 PO
[2020-08-06] MEDS ORDERED: PANT40TA29 (13:49)
[2020-08-06] MEDS ORDERED: LOSA50TA88 PO (13:49)
[2020-08-06] MEDS ORDERED: EZET10TA21 PO (13:52)
[2020-08-06] MEDS ORDERED: METOCLOPRAMIDE INJ 10MG/2ML VIAL (J2765 PER 1) IV ONE (14:05)
[2020-08-06] MEDS ORDERED: NS 1,000 ML IV ONE (14:05)
[2020-08-06 14:06] LABS: BASO % 0.3 % (0.0-1.0); EOS # 0.3 10^3/uL (0.0-0.5); EOS % 3.4 % (0.0-3.0); HEMATOCRIT 37.9 % (36.0-47.0); HEMOGLOBIN 12.7 g/dl (12.0-15.5); LYMPH % 31.2 % (24.0-44.0); MEAN CORPUSCULAR HEMOGLOBIN 31.2 pg (27.0-33.0); MEAN CORPUSCULAR HGB CONC 33.5 g/dl (32.0-36.5); MEAN CORPUSCULAR VOLUME 93.1 fl (80.0-96.0); MONO # 0.7 10^3/uL (0.0-0.8); MONO % 7.1 % (2.0-8.0); NEUTROPHILS # 5.6 10^3/uL (1.5-8.5); NEUTROPHILS % 57.5 % (36.0-66.0); PLATELET COUNT, AUTOMATED 287 10^3/uL (150-450); RED BLOOD COUNT 4.07 10^6/uL (4.00-5.40); WHITE BLOOD COUNT 9.7 10^3/uL (4.0-10.0)
[2020-08-06 14:58] LABS: ALBUMIN 3.8 GM/DL (3.2-5.2); BILIRUBIN,DIRECT 0.2 MG/DL (0.0-0.2); BILIRUBIN,TOTAL 0.5 MG/DL (0.2-1.0); TOTAL PROTEIN 6.4 GM/DL (6.4-8.2)
[2020-08-06] MEDS ORDERED: ISOVUE-370 76% 100ML VIAL As Ordered ONE (15:35)
[2020-08-06 16:24] LABS: CK-MB VALUE MASS 1.1 NG/ML (<3.6); CPK CREATINE PHOSPHOKINASE 107 U/L (26-192); MB/CK RELATIVE INDEX 1.03 (< OR =4); TROPONIN I < 0.02 NG/ML (< 0.10)
--- NOTE | 2020-08-06 16:56 | REP ---
INDICATION: abd pain-upper and rlq. COMPARISON: None. TECHNIQUE: Abdomen/pelvis CT with IV contrast, without bowel CONTRAST: Comparison is 07/02/2015. FINDINGS: Patient has surgical history of cholecystectomy and hysterectomy. The visualized lung bosch are unremarkable. The hepatic parenchyma is unremarkable. There are surgical clips in the gallbladder fossa. Pancreas and spleen are normal size and unremarkable. The adrenals are unremarkable. There are few small Bosniak type 1 renal cyst. The kidneys are otherwise unremarkable. No hydronephrosis or perinephric stranding. No perinephric fluid collections. The abdominal aorta is unremarkable except for calcified atheroma. There is no periaortic adenopathy or mass. There is no ascites. There are no inflammatory changes in the mesentery. There is wall thickening of the transverse colon compatible with inflammatory versus infectious colitis. There is no bowel obstruction. Pelvis: The appendix is unremarkable. The vaginal cuff, adnexa and bladder are unremarkable. The pelvic bowel loops are unremarkable. IMPRESSION: Wall thickening of the transverse colon compatible with infectious versus inflammatory colitis. There is no ascites. No inflammatory changes in the mesentery. There is no pneumoperitoneum. Cholecystectomy and hysterectomy. There are few small Bosniak type 1 renal cysts. <Electronically signed by Dayton Parry > 08/06/20 5030
[2020-08-06] MEDS ORDERED: FLAG500T PO (17:29)
[2020-08-06] MEDS ORDERED: CIPR-249 PO (17:29)
[2020-08-06] MEDS ORDERED: CIPROFLOXACIN 500MG TABLET PO ONE (17:30)
[2020-08-06] MEDS ORDERED: metroNIDAZOLE (FLAGYL) 500MG TABLET PO ONE (17:30)
--- NOTE | 2020-08-06 17:41 | ECGEPIP ---
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 Order Number: [id number] Reading MD: Adrienne Oliva Measurements Intervals [place] Rate: 68 P: 39 ID: [id number] QRS: -5 QRSD: 94 T: -11 QT: 424 QTc: 450 Interpretive Statements Normal sinus rhythm with sinus arrhythmia NSTTW abnormalities increased rate 10/12/16 Electronically Signed on 08-06-2020 17:41:24 EDT by Adrienne Oliva
[2020-08-06 17:44] VITALS: BP 145/69
== END 2020-08-06 17:48 | disposition home or self-care (01) ==
LOC: M ED 12:02
DX: K52.9 Noninfective gastroenteritis and colitis, unspecified (principal); Z79.51 Long term (current) use of inhaled steroids; Z79.82 Long term (current) use of aspirin; Z79.899 Other long term (current) drug therapy; Z91.048 Other nonmedicinal substance allergy status; Z88.6 Allergy status to analgesic agent
CPT/HCPCS: 36415; 74177; 80047; 80076; 82550; 82553; 83605; 83690; 85025; 93005; 96361; 96374; 99284; J2765; Q9967

== ENCOUNTER 2023-04-03 11:20 | Day surgery (SDC) | payer OTHER ==
[~2023-04-03] VITALS: Ht 152.4 cm; Wt 83.5 kg
[~2023-04-03 11:20] MED LIST changes: +ALBU8.5H INH; +AMPICILLIN SOD/SULBACTAM SOD 3 GM in D5W MINI-BAG PLUS 100 ML IV ONE; +CIPR-249 PO; +CLOP75TA99 PO; +EZET10TA21 PO; +FAMO40TA3 PO; +FENO150C PO; +FLAG500T PO; -LISI-898 PO; +LISI5TAB11 PO; +LOSA50TA28 PO; +MECL-209 PO; -MECL1TAB31 PO; +MONT-5 PO; +PANT40TA29 PO; -PLAV1TAB2 PO; +ROSU20TA61 PO; -SING10TA32 PO
[2023-04-03] MEDS ORDERED: ROCURONIUM BROMIDE 50MG/5ML VIAL As Ordered ONE (11:48)
[2023-04-03] MEDS ORDERED: fentaNYL 100 MCG/2 ML INJECTION As Ordered ONE (11:48)
[2023-04-03] MEDS ORDERED: MIDAZOLAM INJ 2MG/2ML VIAL As Ordered ONE (11:48)
[2023-04-03] MEDS ORDERED: propofoL 200 MG/20 ML VIAL As Ordered ONE (11:48)
[2023-04-03] MEDS ORDERED: LIDOCAINE 2% 100MG/5ML SDV (FOR ANES.) As Ordered ONE (11:48)
[2023-04-03] MEDS ORDERED: ONDANSETRON 4MG 2ML VIAL As Ordered ONE (11:49)
[2023-04-03] MEDS ORDERED: KETOROLAC 60MG 2ML VIAL As Ordered ONE (11:49)
[2023-04-03] MEDS ORDERED: MEPIVACAINE HCL 3 % 1.7 ML DENTAL CARTRIDGE (CARBOCAINE) As Ordered ONE (12:33)
[2023-04-03] MEDS ORDERED: CHLORHEXIDINE GLUCONATE 0.12 % 15ML UDC (PERIDEX ORAL RINSE) As Ordered ONE ×3 (12:33→12:36)
[2023-04-03] MEDS ORDERED: LIDOCAINE 2% W/ EPINEPHRINE 1.7 ML DENTAL INJ As Ordered ONE ×2 (12:34→13:55)
[2023-04-03] MEDS ORDERED: OXYMETAZOLINE 0.05% NASAL SPRAY (AFRIN) As Ordered ONE (12:49)
[2023-04-03] MEDS ORDERED: SCOPOLAMINE 1MG TRANSDERMAL PATCH As Ordered ONE (12:49)
[2023-04-03] MEDS ORDERED: THROMBIN 5,000 UNITS VIAL As Ordered ONE (13:04)
[2023-04-03] MEDS ORDERED: LABETALOL 100MG/20ML VIAL As Ordered ONE (13:57)
[2023-04-03] MEDS ORDERED: GLYCOPYRROLATE INJ 0.2 MG/ML 2 ML VIAL As Ordered ONE (14:02)
[2023-04-03] MEDS ORDERED: METOCLOPRAMIDE INJ 10MG/2ML VIAL As Ordered ONE (14:08)
[2023-04-03] MEDS ORDERED: ONDANSETRON 4MG 2ML VIAL IV PRN (14:50)
[2023-04-03] MEDS ORDERED: HYDROMORPHONE HCL 0.5 MG/ 0.5 ML SYRINGE IV PRN (14:50)
[2023-04-03] MEDS ORDERED: LR 1,000 ML IV SCH (14:50)
[2023-04-03] MEDS ORDERED: oxyCODONE 5MG TAB PO PRN (14:50)
[2023-04-03] MEDS ORDERED: fentaNYL 100 MCG/2 ML INJECTION IV PRN (14:50)
[2023-04-03 17:35] VITALS: BP 140/71; TEMP 97.8; O2SAT 94
== END 2023-04-03 17:35 | disposition home or self-care (01) ==
LOC: M SDC 11:20
PROVIDERS: ATTEND Dentist
DX: K02.9 Dental caries, unspecified (principal); R07.9 Chest pain, unspecified; I20.9 Angina pectoris, unspecified; Z95.5 Presence of coronary angioplasty implant and graft; Z88.5 Allergy status to narcotic agent; Z91.048 Other nonmedicinal substance allergy status; Z79.899 Other long term (current) drug therapy; Z79.02 Long term (current) use of antithrombotics/antiplatelets; Z79.82 Long term (current) use of aspirin; F17.210 Nicotine dependence, cigarettes, uncomplicated
CPT/HCPCS: 88300; D7140; D7210; D7310; J0670; J1100; J1885; J1920; J2250; J2405; J2765; J3010